=== PATIENT | male | born 1995 | race Caucasian/White ===

== ENCOUNTER 2020-06-27 16:57 | Outpatient (REF) | payer OTHER, SELFPAY | END 2020-06-27 16:58 | disposition home or self-care (01) | LOC: HO.LAB 16:57 | PROVIDERS: Visit Provider Internal Medicine | DX: Z20.828 Contact with and (suspected) exposure to other viral communicable diseases (principal) | CPT/HCPCS: C9803; U0003 ==

== ENCOUNTER 2020-11-06 14:19 | Outpatient (REF) | payer OTHER, SELFPAY ==
[2020-11-06 15:18] LABS: MANUAL DIFF FLAG NO
[2020-11-06 15:21] LABS: Basophils Absolute Auto 0.1 X10*3/uL (0.0-0.2); Basophils Percent Auto 0.9 % (0-2); Eosinophils Absolute Auto 0.5 X10*3/uL (0.0-0.4); Hematocrit 47.4 % (42-52); Hemoglobin 15.7 g/dl (14.0-18.0); Imm Gran Abs Auto 0.06 X10*3/uL (0.00-0.03); Imm Gran Pct Auto 0.6 % (0.0-0.4); Lymphocytes Percent Auto 21.3 % (20-40); Mean Corpuscular HGB Conc 33.1 g/dl (31.0-36.0); Mean Corpuscular Hemoglobin 26.7 pg (27.0-33.0); Mean Corpuscular Volume 80.5 fL (80-98); Mean Platelet Volume 9.9 fL (9.4-12.4); Monocytes Absolute Auto 0.7 X10*3/uL (0.1-1.2); Monocytes Percent Auto 7.1 % (2-11); Neutrophils Absolute Auto 6.2 X10*3/uL (2.0-8.3); Neutrophils Percent Auto 65.1 % (45-73); Platelet Count 388 X10*3/uL (160-400); Red Blood Count 5.89 X10*6/uL (4.60-5.80); Red Cell Distribution Width 13.4 % (11.0-16.0); White Blood Count 9.6 X10*3/uL (4.8-10.8)
[2020-11-06 15:48] LABS: Alanine Aminotransferase 25 U/L (0-40); Albumin Level 5.2 g/dL (3.5-5.0); Alkaline Phosphatase 92 U/L (39-117); Anion Gap 13 (12-20); Aspartate Amino Transferase 23 U/L (5-37); Bilirubin Total 0.7 mg/dL (0.0-1.0); Blood Urea Nitrogen 11 mg/dL (9-16); Calcium 9.9 mg/dL (8.4-10.2); Carbon Dioxide 28 mmol/L (22-29); Chloride 103 mmol/L (96-108); Cholesterol 204 mg/dL; Estimated Glomerular Filt Rate > 60; Glucose Random 92 mg/dL (60-115); HDL Cholesterol 45 mg/dL; LDL Cholesterol Calculated 129 mg/dl; Potassium 4.2 mmol/L (3.3-5.1); Sodium 140 mmol/L (135-145); Triglycerides 152 mg/dL
[2020-11-06 16:09] LABS: Free T4 (Free Thyroxine) 0.91 ng/dL (0.71-1.85); Thyroid Stimulating Hormone 2.02 uIU/mL (0.32-4.0)
[2020-11-06 16:25] LABS: Folate > 20.0 ng/mL (> or = 4.0); Vitamin B12 611 pg/mL (200-900)
[2020-11-07 09:01] LABS: HBsAGNum1 0.14 S/CO (0.00-0.99); HIV AB/AG Nonreactive (Nonreactive); HIV Num 1 0.08 S/CO (0.00-0.99); Hepatitis B Surface Antigen Negative (Negative)
[2020-11-07 09:45] LABS: HBc Num1 0.05 S/CO (0.00-0.79); Hepatitis B Core Antibody Nonreactive (Nonreactive); ~HepC Num1 0.11 S/CO (0.00-0.79); ~Hepatitis B Surface Antibody REACTIVE (Nonreactive); ~Hepatitis C Antibody Nonreactive (Nonreactive)
[2020-11-07 10:12] LABS: CT PCR NOT DETECTED (Not Detect.); NG PCR NOT DETECTED (Not Detect.)
== END 2020-11-06 14:20 | disposition home or self-care (01) ==
LOC: HO.LAB 14:19
PROVIDERS: PCP Internal Medicine; Visit Provider Internal Medicine
DX: E66.3 Overweight (principal); F90.0 Attention-deficit hyperactivity disorder, predominantly inattentive type; R94.8 Abnormal results of function studies of other organs and systems; E78.00 Pure hypercholesterolemia, unspecified
CPT/HCPCS: 80053; 80061; 82607; 82746; 84439; 84443; 85025; 86704; 86706; 86803; 87340; 87389; 87491; 87591

== ENCOUNTER 2020-12-24 11:46 | Outpatient (REF) | payer OTHER, SELFPAY ==
[2020-12-24 12:21] LABS: COVID-19 Test Negative (Negative); IDNOW Serial# 55D5AD1C
== END 2020-12-24 11:47 | disposition home or self-care (01) ==
LOC: HO.EMPCOV 11:46
PROVIDERS: Visit Provider Internal Medicine
DX: Z20.822 Contact with and (suspected) exposure to COVID-19 (principal)
CPT/HCPCS: 36415; 87635; C9803

== ENCOUNTER 2021-09-26 07:36 | Outpatient (REF) | payer OTHER, SELFPAY ==
[2021-09-26 08:12] LABS: Appearance Urine CLEAR; Color Urine YELLOW; Glucose Urine UA NEG (NEG); Leukocyte Esterase Urine NEG (NEG); Nitrite Urine NEG (NEG); PH 6.5 (5.0-8.0); Specific Gravity - Urine 1.025 (1.005-1.025); UACC Culture Trigger NO; Urine Blood TRACE (NEG); Urine Ketones NEG (NEG); Urine Protein NEG (NEG-TRACE)
[2021-09-26 08:22] LABS: Hematocrit 44.7 % (42.0-52.0); Hemoglobin 14.4 g/dl (14.0-18.0); Mean Corpuscular HGB Conc 32.2 g/dl (31.0-36.0); Mean Corpuscular Hemoglobin 26.4 pg (27.0-33.0); Mean Corpuscular Volume 81.9 fL (80.0-98.0); Mean Platelet Volume 9.7 fL (9.4-12.4); Platelet Count 350 X10*3/uL (160-400); Red Blood Count 5.46 X10*6/uL (4.60-5.80); Red Cell Distribution Width 13.4 % (11.0-16.0); White Blood Count 6.7 X10*3/uL (4.8-10.8)
[2021-09-26 08:28] LABS: Mucus Urine TRACE /LPF; WBC Urine 0 /HPF (0-4)
[2021-09-26 08:41] LABS: Alanine Aminotransferase 22 U/L (0-40); Albumin Level 4.8 g/dL (3.5-5.0); Alkaline Phosphatase 78 U/L (39-117); Anion Gap 11 (12-20); Aspartate Amino Transferase 22 U/L (5-37); Bilirubin Total 0.4 mg/dL (0.0-1.0); Blood Urea Nitrogen 13 mg/dL (9-16); Calcium 10.3 mg/dL (8.4-10.2); Carbon Dioxide 30 mmol/L (22-29); Chloride 105 mmol/L (96-108); Estimated Glomerular Filt Rate > 60; Glucose Fasting 107 mg/dL (60-99); Potassium 4.7 mmol/L (3.3-5.1); Sodium 141 mmol/L (135-145); Total Protein 7.8 g/dL (6.5-8.0)
[2021-09-26 09:00] LABS: HBS Num1 11.96 mIU/mL (0-7.99); HBc Num1 0.09 S/CO (0.00-0.79); HIV AB/AG Nonreactive (Nonreactive); HIV Num 1 0.09 S/CO (0.00-0.99); Hepatitis B Core Antibody Nonreactive (Nonreactive)
[2021-09-26 09:04] LABS: TSH reflex Free T4 1.34 uIU/mL (0.32-4.0)
[2021-09-26 09:12] LABS: ~HepC Num1 0.13 S/CO (0.00-0.79); ~Hepatitis C Antibody Nonreactive (Nonreactive)
[2021-09-26 09:26] LABS: HBsAGNum1 0.25 S/CO (0.00-0.99); Hepatitis B Surface Antigen Negative (Negative)
[2021-09-26 09:41] LABS: Syphilis Screen Reactive (Nonreactive)
[2021-09-26 10:29] LABS: HBS Num2 10.75 mIU/mL (0-7.99); HBS Num3 10.49 mIU/mL (0-7.99); ~Hepatitis B Surface Antibody GRAYZONE (Nonreactive)
[2021-09-27 13:20] LABS: Herpes Simplex Type 2 IgG <0.90 index
[2021-10-06 11:17] LABS: T.Pallidum Particle Agg Test Reactive (Nonreactive)
[2021-11-05 10:03] LABS: RPR Quantitative Reactive 1:2 (Nonreactive)
== END 2021-09-26 07:37 | disposition home or self-care (01) ==
LOC: HO.LAB 07:36
PROVIDERS: PCP Internal Medicine; Visit Provider Physician Assistant
DX: N48.1 Balanitis (principal); Z11.3 Encounter for screening for infections with a predominantly sexual mode of transmission; Z13.1 Encounter for screening for diabetes mellitus; Z11.59 Encounter for screening for other viral diseases; Z13.29 Encounter for screening for other suspected endocrine disorder; A53.9 Syphilis, unspecified
CPT/HCPCS: 36415; 80053; 81001; 84443; 85027; 86592; 86695; 86696; 86704; 86706; 86780; 86803; 87340; 87389

== ENCOUNTER 2021-09-27 07:05 | Outpatient (REF) | payer OTHER, SELFPAY ==
[2021-09-27 07:47] LABS: Appearance Urine CLEAR; Color Urine YELLOW; Glucose Urine UA NEG (NEG); Leukocyte Esterase Urine NEG (NEG); Nitrite Urine NEG (NEG); PH 6.5 (5.0-8.0); UACC Culture Trigger NO; Urine Blood TRACE (NEG); Urine Ketones NEG (NEG); Urine Protein TRACE MG/DL (NEG-TRACE)
[2021-09-27 08:02] LABS: Squamous Epithelial Cell Urine TRACE /LPF; WBC Urine 0 /HPF (0-4)
[2021-09-27 08:03] LABS: Mucus Urine TRACE /LPF
[2021-09-29 08:51] LABS: Syphilis Screen Reactive (Nonreactive)
== END 2021-09-27 07:06 | disposition home or self-care (01) ==
LOC: HO.LAB 07:05
PROVIDERS: Physician Assistant; PCP Internal Medicine; Visit Provider Internal Medicine
DX: A53.9 Syphilis, unspecified (principal); R30.0 Dysuria; N48.1 Balanitis
CPT/HCPCS: 36415; 81001; 86780

== ENCOUNTER → 2021-10-07 10:03 | Outpatient (BNVA) | payer OTHER, SELFPAY | PROVIDERS: PCP Internal Medicine; Visit Provider Internal Medicine ==

== ENCOUNTER 2022-02-16 12:16 | Outpatient (REF) | payer OTHER, SELFPAY ==
--- NOTE | ~2022-02-16 | XR_ITS ---
EXAMINATION: XR ABDOMEN KUB CLINICAL INDICATION: Hematuria COMPARISON: None TECHNIQUE: AP view of the abdomen. FINDINGS: The bowel gas pattern is normal with no evidence of ileus or obstruction. No unusual soft tissue calcifications are noted. The bones are unremarkable. XR/XR KUB IMPRESSION: Unremarkable examination.
== END 2022-02-16 12:17 | disposition home or self-care (01) ==
LOC: HO.XRAY 12:16
PROVIDERS: Visit Provider Internal Medicine
DX: R31.9 Hematuria, unspecified (principal)
CPT/HCPCS: 74018

== ENCOUNTER 2022-02-17 07:10 | Outpatient (REF) | payer OTHER, SELFPAY ==
[2022-02-17 07:57] LABS: Urine Cytology See Pathology rpt
[2022-02-17 08:03] LABS: Appearance Urine CLEAR; Color Urine YELLOW; Glucose Urine UA NEG (NEG); Leukocyte Esterase Urine NEG (NEG); Nitrite Urine NEG (NEG); PH 6.5 (5.0-8.0); Specific Gravity - Urine 1.015 (1.005-1.025); UACC Culture Trigger NO; Urine Blood TRACE (NEG); Urine Ketones NEG (NEG); Urine Protein NEG (NEG-TRACE)
[2022-02-17 08:29] LABS: WBC Urine 0-2 /HPF (0-4)
[2022-02-17 08:37] LABS: Alanine Aminotransferase 22 U/L (0-40); Albumin Level 4.6 g/dL (3.5-5.0); Alkaline Phosphatase 80 U/L (39-117); Anion Gap 14 (12-20); Aspartate Amino Transferase 23 U/L (5-37); Bilirubin Total 0.6 mg/dL (0.0-1.0); Blood Urea Nitrogen 12 mg/dL (9-16); Calcium 9.6 mg/dL (8.4-10.2); Carbon Dioxide 26 mmol/L (22-29); Chloride 104 mmol/L (96-108); Estimated Average Glucose 100 mg/dL; Estimated Glomerular Filt Rate > 60; Glucose Random 100 mg/dL (60-115); Hemoglobin A1c % 5.1 %; Potassium 4.6 mmol/L (3.3-5.1); Sodium 139 mmol/L (135-145); Total Protein 7.2 g/dL (6.5-8.0)
== END 2022-02-17 07:11 | disposition home or self-care (01) ==
LOC: HO.LAB 07:10
PROVIDERS: Physician Assistant; PCP Internal Medicine; Visit Provider Internal Medicine
DX: R73.09 Other abnormal glucose (principal); R30.0 Dysuria; N48.1 Balanitis; R31.9 Hematuria, unspecified
CPT/HCPCS: 36415; 80053; 81001; 81003; 83036; 88112

== ENCOUNTER 2022-09-08 07:06 | Outpatient (REF) | payer OTHER, SELFPAY ==
[2022-09-08 07:16] LABS: MANUAL DIFF FLAG NO
[2022-09-08 07:40] LABS: Basophils Absolute Auto 0.1 X10*3/uL (0.0-0.2); Basophils Percent Auto 1.4 % (0-2); Eosinophils Absolute Auto 0.7 X10*3/uL (0.0-0.4); Eosinophils Percent Auto 9.8 % (0-4); Hematocrit 44.2 % (42.0-52.0); Hemoglobin 14.4 g/dl (14.0-18.0); Imm Gran Abs Auto 0.03 X10*3/uL (0.00-0.03); Imm Gran Pct Auto 0.4 % (0.0-0.4); Lymphocytes Percent Auto 27.3 % (20-40); Mean Corpuscular HGB Conc 32.6 g/dl (31.0-36.0); Mean Corpuscular Hemoglobin 26.1 pg (27.0-33.0); Mean Corpuscular Volume 80.2 fL (80.0-98.0); Mean Platelet Volume 9.3 fL (9.4-12.4); Monocytes Absolute Auto 0.6 X10*3/uL (0.1-1.2); Neutrophils Absolute Auto 3.9 x10*3/uL (2.0-8.3); Neutrophils Percent Auto 53.1 % (45-73); Platelet Count 306 X10*3/uL (160-400); Red Blood Count 5.51 X10*6/uL (4.60-5.80); Red Cell Distribution Width 13.6 % (11.0-16.0); White Blood Count 7.4 X10*3/uL (4.8-10.8)
[2022-09-08 08:29] LABS: Appearance Urine Clear; Color Urine Yellow; Glucose Urine UA Negative (Negative); Leukocyte Esterase Urine Negative (Negative); Nitrite Urine Negative (Negative); PH 5.5 (5.0-9.0); Specific Gravity - Urine >= 1.030 (1.005-1.025); UMIC TRIGGER UA YES; Urine Blood Trace (Negative); Urine Ketones Negative (Negative); Urine Protein Trace mg/dL (Neg-Trace)
[2022-09-08 08:34] LABS: Bacteria Urine None Seen (None Seen); Hyaline Casts Urine 0-2 /LPF (0-2); RBC Urine 0-2 /HPF (0-2); Squamous Epithelial Cell Urine 0-2 /HPF (0-2); WBC Urine 0-5 /HPF (0-5)
[2022-09-08 08:51] LABS: Alanine Aminotransferase 31 U/L (0-40); Albumin Level 4.6 g/dL (3.5-5.0); Alkaline Phosphatase 84 U/L (39-117); Anion Gap 15 (12-20); Aspartate Amino Transferase 22 U/L (5-37); Bilirubin Total 0.6 mg/dL (0.0-1.0); Blood Urea Nitrogen 16 mg/dL (9-16); Calcium 10.2 mg/dL (8.4-10.2); Carbon Dioxide 25 mmol/L (22-29); Chloride 105 mmol/L (96-108); Cholesterol 193 mg/dL; Estimated Glomerular Filt Rate > 60; Glucose Random 89 mg/dL (60-115); HDL Cholesterol 48 mg/dL; LDL Cholesterol Calculated 108 mg/dl; Potassium 4.1 mmol/L (3.3-5.1); Sodium 141 mmol/L (135-145); Total Protein 7.4 g/dL (6.5-8.0); Triglycerides 186 mg/dL
[2022-09-08 09:09] LABS: Free T4 (Free Thyroxine) 0.96 ng/dL (0.71-1.85); Thyroid Stimulating Hormone 1.13 uIU/mL (0.32-4.0)
[2022-09-08 09:23] LABS: Folate > 20.0 ng/mL (> or = 4.0); Vitamin B12 702 pg/mL (200-900)
== END 2022-09-08 07:07 | disposition home or self-care (01) ==
LOC: HO.LAB 07:06
PROVIDERS: PCP Internal Medicine; Visit Provider Internal Medicine
DX: F90.9 Attention-deficit hyperactivity disorder, unspecified type (principal); E66.3 Overweight; E78.00 Pure hypercholesterolemia, unspecified
CPT/HCPCS: 36415; 80053; 80061; 81001; 82607; 82746; 84439; 84443; 85025

== ENCOUNTER 2022-11-18 14:00 | Outpatient (REF) | payer OTHER, SELFPAY ==
--- NOTE | ~2022-11-18 | US_ITS ---
EXAMINATION: US RETROPERITONEAL LIMITED (RENAL ONLY) CLINICAL INFORMATION: Hematuria, unspecified. COMPARISON: X-ray abdomen KUB 02/16/2022. TECHNIQUE: Real-time imaging of the kidneys. FINDINGS: RIGHT KIDNEY: 9.9 x 7.2 x 6.7 cm (SAG x AP x TRV). The kidney is normal in size, contour, and echogenicity. Renal cortical thickness is normal. No renal calculi or hydronephrosis. A benign-appearing exophytic 1.8 cm cyst is present which needs no additional imaging or followup. No solid renal masses. LEFT KIDNEY: 9.8 x 6.5 x 5.3 cm (SAG x AP x TRV). The kidney is normal in size, contour, and echogenicity. Renal cortical thickness is normal. No renal calculi or hydronephrosis. A benign-appearing 1.9 cm parapelvic cyst is present which needs no additional imaging or followup. No solid renal masses. US/US renal BI IMPRESSION: Negative exam. A cause for the patient's hematuria has not been found.
== END 2022-11-18 14:01 | disposition home or self-care (01) ==
LOC: HO.US 14:00
PROVIDERS: PCP Internal Medicine; Visit Provider Internal Medicine
DX: R31.9 Hematuria, unspecified (principal)
CPT/HCPCS: 76775

== ENCOUNTER 2023-06-30 13:55 | Outpatient (AMB) | payer OTHER, SELFPAY ==
--- NOTE | 2023-06-30 13:58 | A.OFFPC_ITS ---
Vital Signs 06/30/23 14:00 Height 5 ft 4 in Weight 174 lb 8 oz BMI 29.9 BP 120/72 Blood Pressure Location Lt brachial Position Sitting Pulse 66 Pulse Source Pulse Oximeter Pulse Oximetry (%) 96 Oxygen Delivery Method Room Air Intake Visit Reasons: Follow up Intake Note: Patient is here to follow up on medication review. Clothes Marker Required: No Medical Surgical Tech: Not Required per policy Accompanied by: Self / Same As Patient Allergies No Known Allergies Allergy (Verified 06/30/23 13:59) Tobacco use date assessed: 06/30/23 Dental Screening Dental Screen Date: 06/30/23 Did you have a dental visit in the last 12 months?: Yes Did you have a dental problem in the last 6 months where you did not have access to dental care?: No Was dental information given to patient?: Patient has dentist HPI Follow up HPI Details [id number] overweight male with a history of ADHD hypercholesterolemia coming in for follow-up. Last seen in January 2023. Patient comes in for med check last blood work was August 2022 [facility] Medical History (Updated 11/13/22 @ 16:35 by Emiliano Berger MD) Syphilis Balanitis Exposure to COVID-19 virus COVID-19 virus infection Overweight (BMI 25.0-29.9) GERD (gastroesophageal reflux disease) Allergic rhinitis ADHD Surgical History H/O adenoidectomy Social History Housing: Apartment Alcohol intake: current Alcohol intake frequency: 3 or more drinks per day Patient Tobacco Use Status: Former Tobacco user Tobacco use type: Cigarette Years Smoked: quit 2019 e-Cigarette/Vaping Use: Never Used Second Hand Smoke Exposure: No service: No Current occupational status: employed Cognitive needs: No Hearing needs: No Vision needs: No Questionnaire Thrive Questionnaire Date Thrive assessed: 11/13/22 FAHAD-7 AMB Questionnaire FAHAD-7 Date FAHAD - 7 assessed: 11/13/22 Source: Developed by Drs. Shimon Shaw, Brynn Cerrato, Arsh Lemus and colleagues, with an educational alfred from [employer]. Physical exam (Primary Care) Vital Signs: Last Vital Signs Pulse 66 06/30/23 14:00 BP 120/72 06/30/23 14:00 Pulse Ox 96 06/30/23 14:00 Oxygen Delivery Method Room Air 06/30/23 14:00 BMI result Body Mass Index 29.9 Tobacco/Smoking Status: Tobacco use Status Tobacco use date assessed 06/30/23 06/30/23 14:04 Patient Tobacco Use Status Former Tobacco user 06/30/23 14:04 Tobacco use type Cigarette 06/30/23 14:04 e-Cigarette/Vaping Use Never Used 06/30/23 14:04 Thrive Assessment: Date of Thrive Assessment Date Thrive assessed 11/13/22 06/30/23 14:04 Const General: alert; No acute distress Eyes Conjunctivae: conjunctivae normal Resp Auscultation: clear to auscultation bilaterally Cardio Rate: regular rate Rhythm: regular rhythm GI Inspection: Yes normal to inspection Extrem General: Yes normal to inspection and No edema Assessment and Plan Assessment & Plan (1) Hypertriglyceridemia: Code(s): E78.1 - Pure hyperglyceridemia Plan: Avoid fried foods, chicken skin, eggs, butter margarine, pastries and meat. Be it pork or beef they have a lot of cholesterol LDL goal of less than 130 and triglyceride of less than 150. August 2022 last blood work (2) Overweight (BMI 25.0-29.9): Code(s): E66.3 - Overweight Plan: Diet and exercise (3) ADHD: Comment: Date of exam July 2008 Meek Spangler Neuropsychology axis 1 degrees ADHD motor output disorder visual-spatial constructional, memory and processing speed weakness rule out thought disorder PDD spectrum features axis Code(s): F90.9 - Attention-deficit hyperactivity disorder, unspecified type Qualifiers: Attention deficit-hyperactivity disorder type: unspecified Qualified Code(s): F90.9 - Attention-deficit hyperactivity disorder, unspecified type Plan: Continue with present medication Orders: Orders Thyroid Stimulating Hormone 3 Months E66.3 - Overweight Lipid Panel 3 Months E78.00 - Pure hypercholesterolemia, unspecified, E78.1 - Pure hyperglyceridemia Complete Blood Count Auto Diff 3 Months E66.3 - Overweight Comprehensive Met. Panel 3 Months E66.3 - Overweight Free T4 (Free Thyroxine) 3 Months E66.3 - Overweight Vitamin B12 and Folate 3 Months E78.1 - Pure hyperglyceridemia Medications: Refilled methylphenidate HCl ER 18 mg PO DAILY 30 tabs 0RF 30 days E66.3 - Overweight Coding Level of Care Code Est Pt Level 4 (39772) Diagnoses Hypertriglyceridemia E78.1 Overweight (BMI 25.0-29.9) E66.3 Attention deficit hyperactivity disorder (ADHD), unspecified ADHD type F90.9 Attention deficit-hyperactivity disorder type: unspecified
[2023-06-30 14:00] VITALS: BP 120/72; PULSE 66; O2SAT 96; BMI 29.9
== END 2023-06-30 14:33 | disposition home or self-care (01) ==
PROVIDERS: PCP Internal Medicine; Visit Provider Internal Medicine
DX: E78.1 Pure hyperglyceridemia (principal); E66.3 Overweight; F90.9 Attention-deficit hyperactivity disorder, unspecified type
CPT/HCPCS: 99214

== ENCOUNTER 2023-06-30 14:45 | Outpatient (REF) | payer OTHER, SELFPAY ==
[2023-06-30 15:05] LABS: MANUAL DIFF FLAG NO
[2023-06-30 15:21] LABS: Basophils Absolute Auto 0.1 X10*3/uL (0.0-0.2); Basophils Percent Auto 1.1 % (0-2); Eosinophils Absolute Auto 0.6 X10*3/uL (0.0-0.4); Eosinophils Percent Auto 7.3 % (0-4); Hematocrit 44.3 % (42.0-52.0); Hemoglobin 14.9 g/dl (14.0-18.0); Imm Gran Abs Auto 0.02 X10*3/uL (0.00-0.03); Imm Gran Pct Auto 0.2 % (0.0-0.4); Lymphocytes Absolute Auto 2.7 X10*3/uL (1.2-4.9); Lymphocytes Percent Auto 30.5 % (20-40); Mean Corpuscular HGB Conc 33.6 g/dl (31.0-36.0); Mean Corpuscular Volume 80.3 fL (80.0-98.0); Mean Platelet Volume 9.2 fL (9.4-12.4); Monocytes Absolute Auto 0.8 X10*3/uL (0.1-1.2); Monocytes Percent Auto 9.3 % (2-11); Neutrophils Absolute Auto 4.5 x10*3/uL (2.0-8.3); Neutrophils Percent Auto 51.6 % (45-73); Platelet Count 370 X10*3/uL (160-400); Red Blood Count 5.52 X10*6/uL (4.60-5.80); Red Cell Distribution Width 13.4 % (11.0-16.0); White Blood Count 8.8 X10*3/uL (4.8-10.8)
[2023-06-30 16:09] LABS: Alanine Aminotransferase 30 U/L (0-40); Albumin Level 4.9 g/dL (3.5-5.0); Alkaline Phosphatase 91 U/L (39-117); Anion Gap 12 (12-20); Aspartate Amino Transferase 25 U/L (5-37); Bilirubin Total 0.4 mg/dL (0.0-1.0); Blood Urea Nitrogen 13 mg/dL (9-16); Calcium 9.9 mg/dL (8.4-10.2); Carbon Dioxide 29 mmol/L (22-29); Chloride 102 mmol/L (96-108); Cholesterol 224 mg/dL (<200); Estimated Glomerular Filt Rate > 60; Glucose Random 89 mg/dL (60-115); HDL Cholesterol 42 mg/dL (>40); LDL Cholesterol Calculated 126 mg/dL (<100); Potassium 4.1 mmol/L (3.3-5.1); Sodium 139 mmol/L (135-145); Total Protein 8.1 g/dL (6.5-8.0); Triglycerides 283 mg/dL (<150)
[2023-06-30 16:26] LABS: Free T4 (Free Thyroxine) 0.92 ng/dL (0.71-1.85); Thyroid Stimulating Hormone 0.87 uIU/mL (0.32-4.0)
[2023-06-30 16:38] LABS: Folate 12.7 ng/mL (> or = 4.0); Vitamin B12 640 pg/mL (200-900)
== END 2023-06-30 14:46 | disposition home or self-care (01) ==
LOC: HO.LAB 14:45
PROVIDERS: PCP Internal Medicine; Visit Provider Internal Medicine
DX: E66.3 Overweight (principal); E78.00 Pure hypercholesterolemia, unspecified; E78.1 Pure hyperglyceridemia
CPT/HCPCS: 36415; 80053; 80061; 82607; 82746; 84439; 84443; 85025

== ENCOUNTER 2023-09-06 16:37 | Outpatient (AMB) | payer OTHER, SELFPAY ==
[2023-09-06 16:40] VITALS: BP 104/68; BMI 30.2
--- NOTE | 2023-09-06 16:40 | MHC.PC.OV ---
Vital Signs 09/06/23 16:40 Height 5 ft 4 in Weight 176 lb BMI 30.2 BP 104/68 Blood Pressure Location Lt brachial Position Sitting Pulse Source Pulse Oximeter Oxygen Delivery Method Room Air Intake Visit Reasons: F/U Coiled Coil Inspector Required: No Allergies No Known Allergies Allergy (Verified 09/06/23 16:41) Tobacco use date assessed: 09/06/23 Dental Screening Dental Screen Date: 09/06/23 HPI F/U HPI Details 28-year-old obese male with ADHD hypertriglyceridemia coming in for follow-up last seen in June 2023. [facility] Medical History (Updated 09/06/23 @ 16:52 by Emiliano Berger MD) Syphilis Balanitis Exposure to COVID-19 virus COVID-19 virus infection Overweight (BMI 25.0-29.9) GERD (gastroesophageal reflux disease) Allergic rhinitis ADHD Surgical History H/O adenoidectomy Social History Housing: Apartment Alcohol intake: current Alcohol intake frequency: 3 or more drinks per day Patient Tobacco Use Status: Former Tobacco user Tobacco use type: Cigarette Years Smoked: quit 2019 e-Cigarette/Vaping Use: Never Used Second Hand Smoke Exposure: No service: No Current occupational status: employed Cognitive needs: No Hearing needs: No Vision needs: No Questionnaire Thrive Questionnaire Date Thrive assessed: 11/13/22 AUDIT C Alcohol Use Questionnaire (AUDIT-C) 1. How often do you have a drink containing alcohol?: Monthly or less 2. How many drinks containing alcohol do you have on a typical day when you are drinking?: 1 or 2 3. How often do you have six or more drinks on one occasion?: Never Total Score: 1 FAHAD-7 AMB Questionnaire FAHAD-7 Date FAHAD - 7 assessed: 11/13/22 Source: Developed by Drs. Shimon Shaw, Brynn Cerrato, Arsh Lemus and colleagues, with an educational alfrde from [employer]. Physical exam (Primary Care) Vital Signs: Last Vital Signs BP 104/68 09/06/23 16:40 Oxygen Delivery Method Room Air 09/06/23 16:40 BMI result Body Mass Index 30.2 Tobacco/Smoking Status: Tobacco use Status Tobacco use date assessed 09/06/23 09/06/23 16:45 Patient Tobacco Use Status Former Tobacco user 09/06/23 16:45 Tobacco use type Cigarette 09/06/23 16:45 e-Cigarette/Vaping Use Never Used 09/06/23 16:45 Thrive Assessment: Date of Thrive Assessment Date Thrive assessed 11/13/22 09/06/23 16:45 Const General: alert; No acute distress Eyes Conjunctivae: conjunctivae normal Resp Auscultation: clear to auscultation bilaterally Cardio Rate: regular rate Rhythm: regular rhythm GI Inspection: Yes normal to inspection Extrem General: Yes normal to inspection and No edema Assessment and Plan Assessment & Plan (1) Obesity (BMI 30.0-34.9): Code(s): E66.9 - Obesity, unspecified Plan: Diet and exercise (2) Hypertriglyceridemia: Code(s): E78.1 - Pure hyperglyceridemia Plan: Avoid fried foods, chicken skin, eggs, butter margarine, pastries and meat. Be it pork or beef they have a lot of cholesterol LDL goal of less than 130 and triglyceride of less than 150. plan on eating better and exercising. (3) ADHD: Comment: Date of exam July 2008 Meek Spangler Neuropsychology axis 1 degrees ADHD motor output disorder visual-spatial constructional, memory and processing speed weakness rule out thought disorder PDD spectrum features axis Code(s): F90.9 - Attention-deficit hyperactivity disorder, unspecified type Qualifiers: Attention deficit-hyperactivity disorder type: unspecified Qualified Code(s): F90.9 - Attention-deficit hyperactivity disorder, unspecified type Plan: Continue with present medication (4) Generalized anxiety disorder: Code(s): F41.1 - Generalized anxiety disorder Plan: Continue with therapy. Coding Level of Care Code Est Pt Level 4 (30337) Diagnoses Obesity (BMI 30.0-34.9) E66.9 Hypertriglyceridemia E78.1 Attention deficit hyperactivity disorder (ADHD), unspecified ADHD type F90.9 Attention deficit-hyperactivity disorder type: unspecified Generalized anxiety disorder F41.1
== END 2023-09-06 17:01 | disposition home or self-care (01) ==
PROVIDERS: PCP Internal Medicine; Visit Provider Internal Medicine
DX: E78.1 Pure hyperglyceridemia (principal); F90.9 Attention-deficit hyperactivity disorder, unspecified type; E66.9 Obesity, unspecified; Z68.30 Body mass index [BMI] 30.0-30.9, adult; F41.1 Generalized anxiety disorder
CPT/HCPCS: 99214

== ENCOUNTER 2023-11-16 13:17 | Outpatient (AMB) | payer OTHER, SELFPAY ==
[2023-11-16 13:18] VITALS: BP 120/82; PULSE 74; O2SAT 98; BMI 29.9
--- NOTE | 2023-11-16 13:18 | MHC.PC.OV ---
Vital Signs 11/16/23 13:18 Height 5 ft 4 in Weight 174 lb 0.6 oz BMI 29.9 BP 120/82 Blood Pressure Location Lt brachial Position Sitting Pulse 74 Pulse Source Pulse Oximeter Pulse Oximetry (%) 98 Oxygen Delivery Method Room Air Intake Visit Reasons: med follow up Intake Note: Patient is here to follow up on [symptoms]. Cardiology Teacher Required: No Allergies No Known Allergies Allergy (Verified 11/16/23 13:18) Tobacco use date assessed: 11/16/23 HPI med follow up HPI Details 28-year-old overweight male with hypertriglyceridemia generalized anxiety disorder and ADHD coming in for follow-up. Last seen in August 2023. June 2023 last blood work [facility] Medical History (Updated 09/06/23 @ 16:52 by Emiliano Berger MD) Syphilis Balanitis Exposure to COVID-19 virus COVID-19 virus infection Overweight (BMI 25.0-29.9) GERD (gastroesophageal reflux disease) Allergic rhinitis ADHD Surgical History H/O adenoidectomy Social History Housing: Apartment Alcohol intake: current Alcohol intake frequency: 3 or more drinks per day Patient Tobacco Use Status: Former Tobacco user Tobacco use type: Cigarette Years Smoked: quit 2019 e-Cigarette/Vaping Use: Never Used Second Hand Smoke Exposure: No service: No Current occupational status: employed Cognitive needs: No Hearing needs: No Vision needs: No Questionnaire Thrive Questionnaire Date Thrive assessed: 11/16/23 AUDIT C Alcohol Use Questionnaire (AUDIT-C) 1. How often do you have a drink containing alcohol?: Monthly or less 2. How many drinks containing alcohol do you have on a typical day when you are drinking?: 1 or 2 3. How often do you have six or more drinks on one occasion?: Never Total Score: 1 FAHAD-7 AMB Questionnaire FAHAD-7 Date FAHAD - 7 assessed: 11/16/23 Source: Developed by Drs. Shimon Shaw, Brynn Cerrato, Arsh Lemus and colleagues, with an educational alfred from [employer] Physical exam (Primary Care) Vital Signs: Last Vital Signs Pulse 74 11/16/23 13:18 BP 120/82 11/16/23 13:18 Pulse Ox 98 11/16/23 13:18 Oxygen Delivery Method Room Air 11/16/23 13:18 BMI result Body Mass Index 29.9 Tobacco/Smoking Status: Tobacco use Status Tobacco use date assessed 11/16/23 11/16/23 13:19 Patient Tobacco Use Status Former Tobacco user 11/16/23 13:19 Tobacco use type Cigarette 11/16/23 13:19 e-Cigarette/Vaping Use Never Used 11/16/23 13:19 Thrive Assessment: Date of Thrive Assessment Date Thrive assessed 11/16/23 11/16/23 13:19 Const General: alert; No acute distress Eyes Conjunctivae: conjunctivae normal Resp Auscultation: clear to auscultation bilaterally Cardio Rate: regular rate Rhythm: regular rhythm GI Inspection: Yes normal to inspection Extrem General: Yes normal to inspection and No edema Assessment and Plan Assessment & Plan (1) Overweight (BMI 25.0-29.9): Code(s): E66.3 - Overweight Plan: Diet and exercise (2) Hypertriglyceridemia: Code(s): E78.1 - Pure hyperglyceridemia Plan: Avoid fried foods, chicken skin, eggs, butter margarine, pastries and meat. Be it pork or beef they have a lot of cholesterol LDL goal of less than 130 and triglyceride of less than 150. June 2023 last blood work (3) ADHD: Comment: Date of exam July 2008 Meek Spangler Neuropsychology axis 1 degrees ADHD motor output disorder visual-spatial constructional, memory and processing speed weakness rule out thought disorder PDD spectrum features axis Code(s): F90.9 - Attention-deficit hyperactivity disorder, unspecified type Qualifiers: Attention deficit-hyperactivity disorder type: unspecified Qualified Code(s): F90.9 - Attention-deficit hyperactivity disorder, unspecified type Plan: Continue with present medication Coding Level of Care Code Est Pt Level 4 (04891) Diagnoses Overweight (BMI 25.0-29.9) E66.3 Hypertriglyceridemia E78.1 Attention deficit hyperactivity disorder (ADHD), unspecified ADHD type F90.9 Attention deficit-hyperactivity disorder type: unspecified
== END 2023-11-16 14:46 | disposition home or self-care (01) ==
LOC: HO.HMGH 13:17
PROVIDERS: PCP Internal Medicine; Visit Provider Internal Medicine
DX: E66.3 Overweight (principal); E78.1 Pure hyperglyceridemia; F90.9 Attention-deficit hyperactivity disorder, unspecified type
CPT/HCPCS: 99214

== ENCOUNTER 2024-05-09 15:10 | Outpatient (AMB) | payer OTHER, SELFPAY ==
--- NOTE | 2024-05-09 15:17 | A.OFFPC_ITS ---
Vital Signs 05/09/24 15:18 Height 5 ft 4 in Weight 181 lb 6 oz BMI 31.1 BP 130/68 Blood Pressure Location Lt brachial Position Sitting Pulse 71 Pulse Source Pulse Oximeter Pulse Oximetry (%) 98 Oxygen Delivery Method Room Air Intake Visit Reasons: annual exam Intake Note: Patient is here today for a physical. 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 patient has no concerns today. COUNT INCLUDES [facility] Medical History Syphilis Balanitis Exposure to COVID-19 virus COVID-19 virus infection Overweight (BMI 25.0-29.9) GERD (gastroesophageal reflux disease) Allergic rhinitis ADHD Surgical History H/O adenoidectomy Social History Housing: Apartment Alcohol intake: current Alcohol intake frequency: 3 or more drinks per day Patient Tobacco Use Status: Former Tobacco user Tobacco use type: Cigarette Years Smoked: quit 2019 e-Cigarette/Vaping Use: Never Used Second Hand Smoke Exposure: No service: No Current occupational status: employed Cognitive needs: No Hearing needs: No Vision needs: No Questionnaire PHQ-9 Over the last 2 weeks, how often have you been bothered by any of the following problems? 1. Little interest or pleasure in doing things: not at all 2. Feeling down, depressed, or hopeless: not at all 3. Trouble falling or staying asleep, or sleeping too much: not at all 4. Feeling tired or having little energy: not at all 5. Poor appetite or overeating: not at all 6. Feeling bad about yourself - or that you are a failure or have let yourself or your family down: not at all 7. Trouble concentrating on things, such as reading the newspaper or watching television: not at all 8. Moving or speaking so slowly that other people could have noticed. Or the opposite - being so fidgety or restless that you have been moving around a lot more than usual: not at all 9. Thoughts that you would be better off or of hurting yourself in some way: not at all Total score: 0 Depression Screening Interpretation: Negative Depression Screening Done: Yes Source: Developed by Drs. Shimon Shaw, Brynn Cerrato, Arsh Lemus and colleagues, with an educational alfred from [employer]. Thrive Questionnaire Date Thrive assessed: 11/16/23 I am a: Patient What is your living situation today?: I have a steady place to live Within the past 12 months, did the food you bought not last and you didn't have the money to get more?: Never true Within the past 12 months, did you worry whether your food would run out before you got money to buy more?: Never true Do you have trouble paying for medicines?: No Do you have trouble getting transportation to medical appointments?: No Do you have trouble paying your heating and electricity bill?: No Do you have trouble taking care of your child, family member or friend?: No Do you have trouble with day-to-day activities such as bathing, preparing meals, shopping, managing finances, etc.?: No Are you currently unemployed and looking for a job?: No Are you interested in more education?: No Please select the resources that you would like help with: None Currently or been in a relationship where the following occur: No concerns reported THRIVE Score: 0 AUDIT C Alcohol Use Questionnaire (AUDIT-C) 1. How often do you have a drink containing alcohol?: 2-4 times a month 2. How many drinks containing alcohol do you have on a typical day when you are drinking?: 1 or 2 3. How often do you have six or more drinks on one occasion?: Never Total Score: 2 FAHAD-7 AMB Questionnaire FAHAD-7 Date FAHAD - 7 assessed: 05/09/24 Feeling nervous, anxious, or on edge: 0 = Not at all Not being able to stop or control worryin = Not at all Worrying too much about different things: 0 = Not at all Trouble relaxin = Not at all Being so restless that it is hard to sit still: 0 = Not at all Becoming easily annoyed or irritable: 0 = Not at all Feeling afraid as if something awful might happen: 0 = Not at all Total FAHAD-7 score (0-4 normal; 5-9 mild; 10-14 moderate; 15-21 severe): 0 Source: Developed by Drs. Shimon Shaw, Brynn Cerrato, Arsh Lemus and colleagues, with an educational alfred from [employer]. Review of Systems Const Denies body aches, Denies fatigue, Denies fever(s), Denies frequent falls, Denies headache(s) and Denies weakness Eyes Reports no additional complaints and Denies change in vision ENT Denies dysphagia, Denies dizziness, Denies facial pain, Denies headache(s), Denies nasal congestion and Denies odynophagia Card Denies chest pain, Denies syncope, Denies irregular heart rhythm, Denies leg edema, Denies lightheadedness and Denies dyspnea Resp Denies cough and Denies dyspnea GI Denies constipation, Denies dysphagia, Denies dyspepsia, Denies diarrhea, Denies nausea, Denies odynophagia and Denies vomiting Denies dysuria, Denies urinary frequency, Denies urinary hesitancy and Denies urinary urgency Musc Denies back pain and Denies myalgias Skin/Breast Reports system reviewed and no additional complaints, except as documented Neuro Denies dizziness, Denies syncope, Denies frequent falls, Denies headache(s) and Denies weakness Psych Reports no additional complaints Endo Denies fatigue Physical exam (Primary Care) Vital Signs: Last Vital Signs Pulse 71 05/09/24 15:18 BP 130/68 05/09/24 15:18 Pulse Ox 98 05/09/24 15:18 Oxygen Delivery Method Room Air 05/09/24 15:18 BMI result Body Mass Index 31.1 Tobacco/Smoking Status: Tobacco use Status Tobacco use date assessed 05/09/24 05/09/24 15:29 Patient Tobacco Use Status Former Tobacco user 05/09/24 15:29 Tobacco use type Cigarette 05/09/24 15:29 e-Cigarette/Vaping Use Never Used 05/09/24 15:29 PHQ-9: PHQ-9 Score PHQ-9: Total score 0 05/09/24 15:29 Depression Screening Interpretation: Negative Thrive Assessment: Date of Thrive Assessment Date Thrive assessed 11/16/23 05/09/24 15:29 Currently or been in a relationship where the following occur: No concerns reported Const General: cooperative, healthy appearing, comfortable and no acute distress Orientation/consciousness: patient oriented x3 HENMT Head: Yes normocephalic Ears: hearing grossly normal bilaterally, external ears normal, TM's normal bilaterally and EAC's normal General nose exam: Normal external nose present Face and sinus: Yes normal facial exam and Yes sinuses nontender Mouth: Normal oral and palatal mucosa present and tongue normal Throat: Yes posterior oropharynx normal Eyes General: appearance normal, both eyes and all related structures Conjunctivae: conjunctivae normal Pupils: Equal, round and reactive pupils present EOM: EOMs intact bilaterally and No Nystagmus present Neck Neck: Yes normal visual inspection, Yes full ROM and Yes no lymphadenopathy Chest Chest palpation & inspection: normal inspection of the chest Resp Effort & Inspection: normal respiratory effort Auscultation: clear to auscultation bilaterally, no crackles, no rales, no rhonchi, no wheezes and breath sounds present Cardio Rate: regular rate Rhythm: regular rhythm Peripheral pulses: radial pulses present and dorsalis pedis present GI Inspection: Yes normal to inspection and No Abdominal wall edema Palpation (GI): Soft to palpation, not firm and nontender Auscultation: normal bowel sounds Rectal Exam - Male: Yes deferred General: Yes no CVA tenderness Back/Spine/Pelvis Back: no CVA tenderness Skin General skin exam: no rashes or lesions noted Neuro General: patient oriented x3 Cranial nerves: Yes Equal, round and reactive pupils present, Yes Midline tongue present, Yes Ability to bilaterally elevate shoulders present and No Nystagmus present Gait exam (Neuro): Normal gait present Extrem General: Yes normal to inspection, Yes full ROM, No no pedal edema and No edema Psych Speech and movement: Normal speech and movement present Affect: normal affect Insight: Good insight present (Psych) Judgement: Good judgement present (Psych) Assessment and Plan Assessment & Plan (1) Obesity (BMI 30.0-34.9): Code(s): E66.9 - Obesity, unspecified Plan: Encouraged healthy diet and regular exercise. (2) Hypertriglyceridemia: Code(s): E78.1 - Pure hyperglyceridemia Plan: Last labs showed elevated triglycerides and LDL. Ordered for updated blood work . Avoid foods that are high in cholesterol such as red meat, fried foods, eggs and baked goods. Triglyceride goal of less than 150 and LDL goal of less than 130. Not currently on medical management (3) Generalized anxiety disorder: Code(s): F41.1 - Generalized anxiety disorder Plan: Not currently on medical management and declines counselor at this time. (4) Annual physical exam: Code(s): Z00.00 - Encounter for general adult medical examination without abnormal findings Plan: Up to date on all recommended vaccinations and screenings for his age. Ordered for updated blood work at this time. Will follow up in 3 months for cholesterol labs. (5) ADHD: Comment: Date of exam July 2008 Meek Spangler Neuropsychology axis 1 degrees ADHD motor output disorder visual-spatial constructional, memory and processing speed weakness rule out thought disorder PDD spectrum features axis Code(s): F90.9 - Attention-deficit hyperactivity disorder, unspecified type Qualifiers: Attention deficit-hyperactivity disorder type: unspecified Qualified Code(s): F90.9 - Attention-deficit hyperactivity disorder, unspecified type Plan: Continue on current medication. Plan This note was constructed using voice recognition software. While every effort has been made to ensure accuracy and rn allergy, still areas may have been included sometimes these areas may affect the content or meeting of the given symptoms. Total time spent caring for the patient today was 30 minutes. This includes time spent before the visit reviewing the chart, time spent during the visit, and time spent after the visit and documentation. Orders: Orders Vitamin B12 and Folate Today Z00.00 - Encounter for general adult medical examination without abnormal findings TSH reflex Free T4 Today Z00.00 - Encounter for general adult medical examination without abnormal findings Complete Blood Count Auto Diff Today Z00.00 - Encounter for general adult medical examination without abnormal findings Comprehensive Met. Panel Today Z00.00 - Encounter for general adult medical examination without abnormal findings Vitamin D 25-OH (D2 and D3) Today Z00.00 - Encounter for general adult medical examination without abnormal findings Free T4 (Free Thyroxine) Today Z00.00 - Encounter for general adult medical examination without abnormal findings Lipid Panel Today Z00.00 - Encounter for general adult medical examination without abnormal findings Hepatitis B Surface Antigen Today Z00.00 - Encounter for general adult medical examination without abnormal findings CT NG by PCR Today Z00.00 - Encounter for general adult medical examination without abnormal findings Hepatitis C Antibody Today Z00.00 - Encounter for general adult medical examination without abnormal findings Medications: Refilled cetirizine (Zyrtec) 10 mg PO DAILY PRN 90 tabs 3RF allergy symptoms Coding Level of Care Code Est Pt Prev Care 18-39y(29702) Diagnoses Obesity (BMI 30.0-34.9) E66.9 Hypertriglyceridemia E78.1 Generalized anxiety disorder F41.1 Annual physical exam Z00.00 Attention deficit hyperactivity disorder (ADHD), unspecified ADHD type F90.9 Attention deficit-hyperactivity disorder type: unspecified
[2024-05-09 15:18] VITALS: BP 130/68; PULSE 71; O2SAT 98; BMI 31.1
== END 2024-05-09 16:07 | disposition home or self-care (01) ==
PROVIDERS: PCP Internal Medicine
DX: E66.9 Obesity, unspecified (principal); E78.1 Pure hyperglyceridemia; F41.1 Generalized anxiety disorder; Z00.00 Encounter for general adult medical examination without abnormal findings; F90.9 Attention-deficit hyperactivity disorder, unspecified type

== ENCOUNTER → 2024-05-09 15:10 | Outpatient (BNVA) | payer SELFPAY | PROVIDERS: PCP Internal Medicine | DX: Z00.00 Encounter for general adult medical examination without abnormal findings (principal); E66.9 Obesity, unspecified; Z68.31 Body mass index [BMI] 31.0-31.9, adult; F41.1 Generalized anxiety disorder; F90.9 Attention-deficit hyperactivity disorder, unspecified type; Z79.899 Other long term (current) drug therapy | CPT/HCPCS: 96127 ==

== ENCOUNTER 2024-05-10 07:15 | Outpatient (REF) | payer OTHER, SELFPAY ==
[2024-05-10 07:29] LABS: MANUAL DIFF FLAG NO
[2024-05-10 07:35] LABS: Basophils Percent Auto 0.7 % (0-2); Eosinophils Absolute Auto 0.3 X10*3/uL (0.0-0.4); Eosinophils Percent Auto 5.6 % (0-4); Hemoglobin 14.6 g/dl (14.0-18.0); Imm Gran Abs Auto 0.03 X10*3/uL (0.00-0.03); Imm Gran Pct Auto 0.5 % (0.0-0.4); Lymphocytes Absolute Auto 1.6 X10*3/uL (1.2-4.9); Lymphocytes Percent Auto 26.7 % (20-40); Mean Corpuscular HGB Conc 33.2 g/dl (31.0-36.0); Mean Corpuscular Hemoglobin 27.1 pg (27.0-33.0); Mean Corpuscular Volume 81.6 fL (80.0-98.0); Mean Platelet Volume 9.1 fL (9.4-12.4); Monocytes Absolute Auto 0.7 X10*3/uL (0.1-1.2); Monocytes Percent Auto 11.4 % (2-11); Neutrophils Absolute Auto 3.3 x10*3/uL (2.0-8.3); Neutrophils Percent Auto 55.1 % (45-73); Platelet Count 319 X10*3/uL (160-400); Red Blood Count 5.39 X10*6/uL (4.60-5.80); Red Cell Distribution Width 13.9 % (11.0-16.0)
[2024-05-10 08:08] LABS: Alanine Aminotransferase 28 U/L (0-40); Albumin Level 4.5 g/dL (3.5-5.0); Alkaline Phosphatase 98 U/L (39-117); Anion Gap 13 (12-20); Aspartate Amino Transferase 21 U/L (5-37); Bilirubin Total 0.3 mg/dL (0.0-1.0); Blood Urea Nitrogen 11 mg/dL (9-16); Calcium 10.1 mg/dL (8.4-10.2); Carbon Dioxide 27 mmol/L (22-29); Chloride 107 mmol/L (96-108); Cholesterol 188 mg/dL (<200); Estimated Glomerular Filt Rate > 60; Glucose Random 108 mg/dL (60-115); HDL Cholesterol 36 mg/dL (>40); LDL Cholesterol Calculated 123 mg/dL (<100); Potassium 4.6 mmol/L (3.3-5.1); Sodium 142 mmol/L (135-145); Total Protein 7.7 g/dL (6.5-8.0); Triglycerides 148 mg/dL (<150)
[2024-05-10 08:19] LABS: HBsAGNum1 0.37 S/CO (0.00-0.99); Hepatitis B Surface Antigen Negative (Negative); ~HepC Num1 0.23 S/CO (0.00-0.79); ~Hepatitis C Antibody Nonreactive (Nonreactive)
[2024-05-10 08:23] LABS: Free T4 (Free Thyroxine) 0.92 ng/dL (0.71-1.85); TSH reflex Free T4 1.99 uIU/mL (0.32-4.0)
[2024-05-10 08:34] LABS: Folate 16.2 ng/mL (> or = 4.0); Vitamin B12 619 pg/mL (200-900)
[2024-05-15 16:43] LABS: Vitamin D 25-OH, D2 <4 ng/mL; Vitamin D 25-OH, D3 28 ng/mL; Vitamin D 25-OH, Total 28 ng/mL (30-100)
== END 2024-05-10 07:16 | disposition home or self-care (01) ==
LOC: HO.LAB 07:15
DX: Z00.00 Encounter for general adult medical examination without abnormal findings (principal)
CPT/HCPCS: 36415; 80053; 80061; 82306; 82607; 82746; 84439; 84443; 85025; 86803; 87340

== ENCOUNTER 2024-09-19 09:52 | Outpatient (REF) | payer OTHER, SELFPAY ==
[2024-09-19 10:56] LABS: MANUAL DIFF FLAG NO
[2024-09-19 11:05] LABS: Basophils Absolute Auto 0.1 X10*3/uL (0.0-0.2); Basophils Percent Auto 0.9 % (0-2); Eosinophils Absolute Auto 0.3 X10*3/uL (0.0-0.4); Eosinophils Percent Auto 4.5 % (0-4); Hematocrit 44.1 % (42.0-52.0); Hemoglobin 14.8 g/dl (14.0-18.0); Imm Gran Abs Auto 0.02 X10*3/uL (0.00-0.03); Imm Gran Pct Auto 0.3 % (0.0-0.4); Lymphocytes Absolute Auto 1.8 X10*3/uL (1.2-4.9); Mean Corpuscular HGB Conc 33.6 g/dl (31.0-36.0); Mean Corpuscular Hemoglobin 27.1 pg (27.0-33.0); Mean Corpuscular Volume 80.8 fL (80.0-98.0); Mean Platelet Volume 8.8 fL (9.4-12.4); Monocytes Absolute Auto 0.6 X10*3/uL (0.1-1.2); Neutrophils Absolute Auto 4.1 x10*3/uL (2.0-8.3); Neutrophils Percent Auto 59.3 % (45-73); Platelet Count 358 X10*3/uL (160-400); Red Blood Count 5.46 X10*6/uL (4.60-5.80); Red Cell Distribution Width 13.8 % (11.0-16.0); White Blood Count 6.9 X10*3/uL (4.8-10.8)
[2024-09-19 11:27] LABS: Alanine Aminotransferase 40 U/L (0-40); Albumin Level 4.8 g/dL (3.5-5.0); Alkaline Phosphatase 99 U/L (39-117); Anion Gap 10 (12-20); Aspartate Amino Transferase 30 U/L (5-37); Bilirubin Total 0.7 mg/dL (0.0-1.0); Blood Urea Nitrogen 13 mg/dL (9-16); Calcium 9.6 mg/dL (8.4-10.2); Carbon Dioxide 28 mmol/L (22-29); Chloride 108 mmol/L (96-108); Cholesterol 211 mg/dL (<200); Estimated Glomerular Filt Rate > 60; Glucose Random 100 mg/dL (60-115); HDL Cholesterol 41 mg/dL (>40); LDL Cholesterol Calculated 151 mg/dL (<100); Potassium 4.5 mmol/L (3.3-5.1); Sodium 141 mmol/L (135-145); Total Protein 8.3 g/dL (6.5-8.0); Triglycerides 97 mg/dL (<150)
[2024-09-19 11:39] LABS: Estimated Average Glucose 103 mg/dL; Hemoglobin A1C 128.2527 umol/L; Hemoglobin A1c % 5.2 % (<6.0); Total Hemoglobin (HGBA1C) 3803.1737 umol/L
[2024-09-19 11:43] LABS: HBS Num1 55.07 mIU/mL (0-7.99); HBc Num1 0.08 S/CO (0.00-0.79); HIV AB/AG Nonreactive (Nonreactive); HIV Num 1 0.05 S/CO (0.00-0.99); Hepatitis B Core Antibody Nonreactive (Nonreactive); Hepatitis B Surface Antigen Negative (Negative); ~HepC Num1 0.13 S/CO (0.00-0.79); ~Hepatitis B Surface Antibody REACTIVE (Nonreactive); ~Hepatitis C Antibody Nonreactive (Nonreactive)
[2024-09-19 11:44] LABS: Free T4 (Free Thyroxine) 1.09 ng/dL (0.71-1.85); Thyroid Stimulating Hormone 0.95 uIU/mL (0.32-4.0)
[2024-09-19 11:45] LABS: Syphilis Screen Reactive (Nonreactive)
[2024-09-24 12:55] LABS: RPR Quantitative Reactive 1:2 (Nonreactive); T.Pallidum Particle Agg Test Reactive (Nonreactive)
== END 2024-09-19 09:53 | disposition home or self-care (01) ==
LOC: HO.LAB 09:52
PROVIDERS: PCP Internal Medicine; Visit Provider Internal Medicine
DX: E78.00 Pure hypercholesterolemia, unspecified (principal); R73.01 Impaired fasting glucose; R79.89 Other specified abnormal findings of blood chemistry; Z20.2 Contact with and (suspected) exposure to infections with a predominantly sexual mode of transmission
CPT/HCPCS: 36415; 80053; 80061; 83036; 84439; 84443; 85025; 86592; 86704; 86706; 86780; 86803; 87340; 87389

== ENCOUNTER 2024-09-19 09:52 | Outpatient (AMB) | payer OTHER, SELFPAY ==
[2024-09-19 09:55] VITALS: BP 110/68; PULSE 80; O2SAT 98; BMI 31.1
--- NOTE | 2024-09-19 09:55 | A.OFFPC_ITS ---
Vital Signs 09/19/24 09:55 Height 5 ft 4 in Weight 181 lb BMI 31.1 BP 110/68 Blood Pressure Location Lt brachial Position Sitting Pulse 80 Pulse Source Pulse Oximeter Pulse Oximetry (%) 98 Oxygen Delivery Method Room Air Intake Visit Reasons: follow up Allergies No Known Allergies Allergy (Verified 09/19/24 09:55) Tobacco use date assessed: 09/19/24 Dental Screening Dental Screen Date: 09/19/24 Did you have a dental visit in the last 12 months?: Yes Did you have a dental problem in the last 6 months where you did not have access to dental care?: No Was dental information given to patient?: Patient has dentist HPI follow up HPI Details The patient is a 29-year-old male presenting with elevated blood glucose levels. During the visit, it was noted that the patient's fasting blood glucose was recorded at 108 mg/dL, which is higher than desired, though not categorized as diabetes. Previous tests have shown normal renal function, blood count, and electrolyte levels. The patient?s lipid profile showed an improvement with a total triglyceride level at 148 mg/dL, a reduction from a previous level of 283 mg/dL. The cholesterol report indicated favorable levels, with LDL cholesterol at 123 mg/dL. The patient has also been noted to have vitamin D deficiency, which is attributed to geographical factors, and low B12 levels. There was mention of elevated thyroid-related concerns. Dietary habits include intake of sugars and high carbohydrates like pasta, bread, rice, and potatoes, which are noted to contribute to the elevated glucose levels. Physical activity was discussed, yet compliance appears inconsistent. ON LICENSE OF [facility] Medical History Syphilis Balanitis Exposure to COVID-19 virus COVID-19 virus infection Overweight (BMI 25.0-29.9) GERD (gastroesophageal reflux disease) Allergic rhinitis ADHD Surgical History H/O adenoidectomy Social History Housing: Apartment Alcohol intake: current Alcohol intake frequency: 3 or more drinks per day Patient Tobacco Use Status: Former Tobacco user Tobacco use type: Cigarette Years Smoked: quit 2020 e-Cigarette/Vaping Use: Never Used Second Hand Smoke Exposure: No service: No Current occupational status: employed Cognitive needs: No Hearing needs: No Vision needs: No Questionnaire PHQ-9 Over the last 2 weeks, how often have you been bothered by any of the following problems? 1. Little interest or pleasure in doing things: not at all 2. Feeling down, depressed, or hopeless: not at all 3. Trouble falling or staying asleep, or sleeping too much: not at all 4. Feeling tired or having little energy: not at all 5. Poor appetite or overeating: not at all 6. Feeling bad about yourself - or that you are a failure or have let yourself or your family down: not at all 7. Trouble concentrating on things, such as reading the newspaper or watching television: not at all 8. Moving or speaking so slowly that other people could have noticed. Or the opposite - being so fidgety or restless that you have been moving around a lot more than usual: not at all 9. Thoughts that you would be better off or of hurting yourself in some way: not at all Total score: 0 Depression Screening Interpretation: Negative Depression Screening Done: Yes Source: Developed by Drs. Shimon Shaw, Brynn Cerrato, Arsh Lemus and colleagues, with an educational alfred from [employer]. Thrive Questionnaire Date Thrive assessed: 09/19/24 I am a: Patient What is your living situation today?: I have a steady place to live Within the past 12 months, did the food you bought not last and you didn't have the money to get more?: Never true Within the past 12 months, did you worry whether your food would run out before you got money to buy more?: Never true Do you have trouble paying for medicines?: No Do you have trouble getting transportation to medical appointments?: No Do you have trouble paying your heating and electricity bill?: No Do you have trouble taking care of your child, family member or friend?: No Do you have trouble with day-to-day activities such as bathing, preparing meals, shopping, managing finances, etc.?: No Are you currently unemployed and looking for a job?: No Are you interested in more education?: No Please select the resources that you would like help with: None Currently or been in a relationship where the following occur: No concerns reported THRIVE Score: 0 AUDIT C Alcohol Use Questionnaire (AUDIT-C) 2. How many drinks containing alcohol do you have on a typical day when you are drinking?: 1 or 2 3. How often do you have six or more drinks on one occasion?: Monthly Total Score: 2 FAHAD-7 AMB Questionnaire FAHAD-7 Date FAHAD - 7 assessed: 09/19/24 Feeling nervous, anxious, or on edge: 0 = Not at all Not being able to stop or control worryin = Not at all Worrying too much about different things: 0 = Not at all Trouble relaxin = Not at all Being so restless that it is hard to sit still: 0 = Not at all Becoming easily annoyed or irritable: 0 = Not at all Feeling afraid as if something awful might happen: 0 = Not at all Total FAHAD-7 score (0-4 normal; 5-9 mild; 10-14 moderate; 15-21 severe): 0 Source: Developed by Drs. Shimon Shaw, Brynn Cerrato, Arsh Lemus and colleagues, with an educational alfred from [employer]. Physical exam (Primary Care) Vital Signs: Last Vital Signs Pulse 80 09/19/24 09:55 BP 110/68 09/19/24 09:55 Pulse Ox 98 09/19/24 09:55 Oxygen Delivery Method Room Air 09/19/24 09:55 BMI result Body Mass Index 31.1 Tobacco/Smoking Status: Tobacco use Status Tobacco use date assessed 09/19/24 09/19/24 09:57 Patient Tobacco Use Status Former Tobacco user 09/19/24 09:57 Tobacco use type Cigarette 09/19/24 09:57 e-Cigarette/Vaping Use Never Used 09/19/24 09:57 PHQ-9: PHQ-9 Score PHQ-9: Total score 0 09/19/24 10:24 Depression Screening Interpretation: Negative Thrive Assessment: Date of Thrive Assessment Date Thrive assessed 09/19/24 09/19/24 09:57 Currently or been in a relationship where the following occur: No concerns reported Const General: alert; No acute distress Eyes Conjunctivae: conjunctivae normal Resp Auscultation: clear to auscultation bilaterally Cardio Rate: regular rate Rhythm: regular rhythm GI Inspection: Yes normal to inspection Extrem General: Yes normal to inspection and No edema Coding Level of Care Code Est Pt Level 4 (04354) Diagnoses Obesity (BMI 30.0-34.9) E66.9 Hypertriglyceridemia E78.1 Generalized anxiety disorder F41.1 Attention deficit hyperactivity disorder (ADHD), unspecified ADHD type F90.9 Attention deficit-hyperactivity disorder type: unspecified Impaired fasting blood sugar R73.01 Sexually transmitted disease exposure Z20.2 Assessment & Plan Assessment & Plan (1) Obesity (BMI 30.0-34.9): Code(s): E66.9 - Obesity, unspecified Category: Medical Plan: diet and exercise (2) Hypertriglyceridemia: Code(s): E78.1 - Pure hyperglyceridemia Category: Medical (3) Generalized anxiety disorder: Code(s): F41.1 - Generalized anxiety disorder Category: Medical (4) ADHD: Comment: Date of exam July 2008 Meek Spangler Neuropsychology axis 1 degrees ADHD motor output disorder visual-spatial constructional, memory and processing speed weakness rule out thought disorder PDD spectrum features axis Code(s): F90.9 - Attention-deficit hyperactivity disorder, unspecified type Category: Medical Qualifiers: Attention deficit-hyperactivity disorder type: unspecified Qualified Code(s): F90.9 - Attention-deficit hyperactivity disorder, unspecified type (5) Impaired fasting blood sugar: Code(s): R73.01 - Impaired fasting glucose Category: Medical (6) Sexually transmitted disease exposure: Code(s): Z20.2 - Contact with and (suspected) exposure to infections with a predominantly sexual mode of transmission Category: Medical Plan - Obtain fasting blood glucose level in three months to reassess glucose levels and potential endocrine evaluations as indicated. - Maintain current dietary modifications focused on reducing carbohydrate and sugar intake. - Encourage increased physical activity to assist in lowering glucose levels. - Monitor and manage vitamin D deficiency with possible supplementation, given geographical considerations impacting sun exposure. - Consider supplementation due to observed low levels. - Discuss further evaluation of thyroid function given noted abnormalities, with possible endocrine referral if necessary. - Continue to monitor lipid profile and blood pressure as part of ongoing hypertensive management. - Reinforce the importance of maintaining balanced nutrition and regular exercise for overall health and glucose regulation. Orders: Orders Lipid Panel Today Emiliano Berger MD E78.00 - Pure hypercholesterolemia, unspecified, R73.01 - Impaired fasting glucose Comprehensive Met. Panel Today Emiliano Berger MD R73.01 - Impaired fasting glucose Hemoglobin A1c Today Emiliano Berger MD R73.01 - Impaired fasting glucose Complete Blood Count Auto Diff Today Emiliano Berger MD R73.01 - Impaired fasting glucose Thyroid Stimulating Hormone Today Emiliano Berger MD R73.01 - Impaired fasting glucose Hepatitis B,C Profile Today Emiliano Berger MD R79.89 - Other specified abnormal findings of blood chemistry, Z20.2 - Contact with and (suspected) exposure to infections with a predominantly sexual mode of transmission CT NG by PCR Today Maria Teresa Metcalf PA-C Z20.2 - Contact with and (suspected) exposure to infections with a predominantly sexual mode of transmission Free T4 (Free Thyroxine) Today Emiliano Berger MD R73.01 - Impaired fasting glucose Syphilis Screen Today Emiliano Berger MD Z20.2 - Contact with and (suspected) exposure to infections with a predominantly sexual mode of transmission HIV Ab/Ag Today Emiliano Berger MD Z20.2 - Contact with and (suspected) exposure to infections with a predominantly sexual mode of transmission
== END 2024-09-19 10:31 | disposition home or self-care (01) ==
PROVIDERS: Visit Provider Internal Medicine
DX: E78.1 Pure hyperglyceridemia (principal); F41.1 Generalized anxiety disorder; E66.9 Obesity, unspecified; Z68.31 Body mass index [BMI] 31.0-31.9, adult; F90.9 Attention-deficit hyperactivity disorder, unspecified type; R73.01 Impaired fasting glucose; Z20.2 Contact with and (suspected) exposure to infections with a predominantly sexual mode of transmission

== ENCOUNTER 2024-12-27 15:38 | Outpatient (AMB) | payer OTHER, SELFPAY ==
--- NOTE | 2024-12-27 15:44 | MHC.PC.OV ---
Vital Signs 12/27/24 15:45 Height 5 ft 4 in Weight 178 lb BMI 30.6 BP 130/72 Blood Pressure Location Lt brachial Position Sitting Pulse 74 Pulse Source Pulse Oximeter Temp 97.1 F Temp Source Temporal Artery Scan Pulse Oximetry (%) 98 Oxygen Delivery Method Room Air Intake Visit Reasons: med review Intake Note: Patient is here to follow up on med review. Disability Representative Required: No Batch Roller Operator: Not Required per policy Accompanied by: Self / Same As Patient Allergies No Known Allergies Allergy (Verified 12/27/24 15:49) Medication List - Last Reconciled 12/27/24 by Maria Teresa Metcalf PA-C methylphenidate HCl ER 18 mg PO DAILY 30 days Tobacco use date assessed: 12/27/24 Dental Screening Dental Screen Date: 09/19/24 HPI med review HPI Details 29-year-old overweight male with hypertriglyceridemia generalized anxiety disorder and ADHD last seen 08/2024 coming in for med review.? Presenting with a request for medication refills for ADHD management. Currently on methylphenidate which he reports is effective in improving function in various settings such as work, school, and home. 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 He denies experiencing side effects from medication, such as insomnia related to it, palpitations, appetite issues, nausea, vomiting, dizziness, chest pain, and shortness of breath. Ongoing stress and anxiety reported, however not pharmacologically managed at present. [facility] Medical History Syphilis Balanitis Exposure to COVID-19 virus COVID-19 virus infection Overweight (BMI 25.0-29.9) GERD (gastroesophageal reflux disease) Allergic rhinitis ADHD Surgical History H/O adenoidectomy Social History Housing: Apartment Alcohol intake: current Alcohol intake frequency: 3 or more drinks per day Patient Tobacco Use Status: Former Tobacco user Tobacco use type: Cigarette Years Smoked: quit 2019 e-Cigarette/Vaping Use: Never Used Second Hand Smoke Exposure: Yes service: No Current occupational status: employed Cognitive needs: No Hearing needs: No Vision needs: No Questionnaire PHQ-9 Over the last 2 weeks, how often have you been bothered by any of the following problems? 1. Little interest or pleasure in doing things: not at all 2. Feeling down, depressed, or hopeless: not at all 3. Trouble falling or staying asleep, or sleeping too much: not at all 4. Feeling tired or having little energy: not at all 5. Poor appetite or overeating: not at all 6. Feeling bad about yourself - or that you are a failure or have let yourself or your family down: not at all 7. Trouble concentrating on things, such as reading the newspaper or watching television: not at all 8. Moving or speaking so slowly that other people could have noticed. Or the opposite - being so fidgety or restless that you have been moving around a lot more than usual: not at all 9. Thoughts that you would be better off or of hurting yourself in some way: not at all Total score: 0 Depression Screening Interpretation: Negative Depression Screening Done: Yes Source: Developed by Drs. Shimon Shaw, Brynn Cerrato, Arsh Lemus and colleagues, with an educational alfred from [employer]. Thrive Questionnaire Date Thrive assessed: 09/19/24 I am a: Patient What is your living situation today?: I have a steady place to live Within the past 12 months, did the food you bought not last and you didn't have the money to get more?: Never true Within the past 12 months, did you worry whether your food would run out before you got money to buy more?: Never true Do you have trouble paying for medicines?: No Do you have trouble getting transportation to medical appointments?: No Do you have trouble paying your heating and electricity bill?: No Do you have trouble taking care of your child, family member or friend?: No Do you have trouble with day-to-day activities such as bathing, preparing meals, shopping, managing finances, etc.?: No Are you currently unemployed and looking for a job?: No Are you interested in more education?: No Please select the resources that you would like help with: None Currently or been in a relationship where the following occur: No concerns reported THRIVE Score: 0 AUDIT C Alcohol Use Questionnaire (AUDIT-C) 1. How often do you have a drink containing alcohol?: 2-4 times a month Total Score: 2 FAHAD-7 AMB Questionnaire FAHAD-7 Date FAHAD - 7 assessed: 09/19/24 Feeling nervous, anxious, or on edge: 0 = Not at all Not being able to stop or control worryin = Not at all Worrying too much about different things: 0 = Not at all Trouble relaxin = Not at all Being so restless that it is hard to sit still: 0 = Not at all Becoming easily annoyed or irritable: 0 = Not at all Feeling afraid as if something awful might happen: 0 = Not at all Total FAHAD-7 score (0-4 normal; 5-9 mild; 10-14 moderate; 15-21 severe): 0 Source: Developed by Drs. Shimon Shaw, Brynn Cerrato, Arsh Lemus and colleagues, with an educational alfred from [employer]. Review of Systems Const Denies body aches, Denies chills, Denies fever(s) and Denies poor appetite Eyes Reports no additional complaints ENT Denies dizziness Card Denies chest pain, Denies syncope, Denies lightheadedness and Denies dyspnea Resp Denies cough and Denies dyspnea GI Denies nausea and Denies vomiting Reports no additional complaints Musc Denies abnormal gait Skin/Breast Reports system reviewed and no additional complaints, except as documented Neuro Denies abnormal gait, Denies dizziness and Denies syncope Psych Reports no additional complaints Physical exam (Primary Care) Vital Signs: Last Vital Signs Temp 97.1 F 12/27/24 15:45 Oxygen Delivery Method Room Air 12/27/24 15:45 BMI result Body Mass Index 30.6 Tobacco/Smoking Status: Tobacco use Status Tobacco use date assessed 09/19/24 09/19/24 09:57 Patient Tobacco Use Status Former Tobacco user 09/19/24 09:57 Tobacco use type Cigarette 09/19/24 09:57 e-Cigarette/Vaping Use Never Used 09/19/24 09:57 Depression Screening Interpretation: Negative Thrive Assessment: Date of Thrive Assessment Date Thrive assessed 09/19/24 09/19/24 09:57 Currently or been in a relationship where the following occur: No concerns reported Coding Level of Care Code Est Pt Level 3 (99566) Diagnoses Obesity (BMI 30.0-34.9) E66.9 Attention deficit hyperactivity disorder (ADHD), unspecified ADHD type F90.9 Attention deficit-hyperactivity disorder type: unspecified Generalized anxiety disorder F41.1 Assessment & Plan Assessment & Plan (1) Obesity (BMI 30.0-34.9): Code(s): E66.9 - Obesity, unspecified Category: Medical Plan: Healthy diet and regular exercise is encouraged. (2) ADHD: Comment: Date of exam July 2008 [facility] Neuropsychology axis 1 degrees ADHD motor output disorder visual-spatial constructional, memory and processing speed weakness rule out thought disorder PDD spectrum features axis Code(s): F90.9 - Attention-deficit hyperactivity disorder, unspecified type Category: Medical Qualifiers: Attention deficit-hyperactivity disorder type: unspecified Qualified Code(s): F90.9 - Attention-deficit hyperactivity disorder, unspecified type Plan: Patient has declined the need for a therapist at this time. Continue on methylphenidate as he finds benefit this medication. (3) Generalized anxiety disorder: Code(s): F41.1 - Generalized anxiety disorder Category: Medical Plan: Patient endorsing feelings of anxiety link to stress. Declining medication management at this time. I did advise patient if he is interested in counseling referral I can place the referral at a later date. Patient agrees to reach out if he is looking for any further management. Plan For Attention-Deficit/Hyperactivity Disorder ADHD), continuation of methylphenidate is planned, acknowledging positive response with no significant side effects reported. Regarding sleep disturbances, the patient is advised on OTC remedies such as melatonin and magnesium, emphasizing appropriate use to avoid side effects. Recommendations include continuing increased physical activity, which can contribute to improved sleep quality. Anxiety discussions were centered on exploring therapy options without immediate pharmacological intervention unless necessary, keeping mental health resources available if reconsidered. A follow-up telehealth visit is scheduled for ongoing management and review. This note was constructed using voice recognition software. While every effort has been made to ensure accuracy and airplane patrol pilot, still areas may have been included sometimes these areas may affect the content or meeting of the given symptoms. Total time spent caring for the patient today was 20 minutes. This includes time spent before the visit reviewing the chart, time spent during the visit, and time spent after the visit and documentation. Patient was informed and verbally consented to the use of an ambient scribe for clinic note documentation during this visit.
[2024-12-27 15:45] VITALS: BP 130/72; PULSE 74; TEMP 36.2; O2SAT 98; BMI 30.6
== END 2024-12-27 16:01 | disposition home or self-care (01) ==
LOC: HO.HMCH 15:38
PROVIDERS: PCP Internal Medicine
DX: F41.1 Generalized anxiety disorder (principal); E66.9 Obesity, unspecified; F90.9 Attention-deficit hyperactivity disorder, unspecified type; Z68.30 Body mass index [BMI] 30.0-30.9, adult

== ENCOUNTER → 2024-12-27 15:38 | Outpatient (BNVA) | payer OTHER, SELFPAY | PROVIDERS: PCP Internal Medicine | DX: Z13.89 Encounter for screening for other disorder (principal) ==

== ENCOUNTER 2025-05-22 16:19 | Outpatient (AMB) | payer OTHER, SELFPAY ==
[2025-05-22 16:23] VITALS: BP 116/74; PULSE 94; TEMP 36.3; O2SAT 97; BMI 31.1
--- NOTE | 2025-05-22 16:23 | MHC.PC.OV ---
Vital Signs 05/22/25 16:23 Height 5 ft 4 in Weight 181 lb 2 oz BMI 31.1 BP 116/74 Blood Pressure Location Lt brachial Position Sitting Pulse 94 Pulse Source Pulse Oximeter Temp 97.3 F Temp Source Temporal Artery Scan Pulse Oximetry (%) 97 Oxygen Delivery Method Room Air Intake Visit Reasons: Annual Exam Allergies No Known Allergies Allergy (Verified 05/22/25 16:25) Medication List - Last Reconciled 05/22/25 by Emiliano Berger MD methylphenidate HCl ER 18 mg PO DAILY 30 days Tobacco use date assessed: 05/22/25 Dental Screening Dental Screen Date: 05/22/25 Did you have a dental visit in the last 12 months?: Yes Did you have a dental problem in the last 6 months where you did not have access to dental care?: No Was dental information given to patient?: Patient has dentist [facility] Medical History Syphilis Balanitis Exposure to COVID-19 virus COVID-19 virus infection Overweight (BMI 25.0-29.9) GERD (gastroesophageal reflux disease) Allergic rhinitis ADHD Surgical History H/O adenoidectomy Social History (Updated 05/22/25 @ 16:57 by Emiliano Berger MD) Housing: Apartment Alcohol intake: current Alcohol intake frequency: 3 or more drinks per day Comment: weekends 6 pack Patient Tobacco Use Status: Former Tobacco user Tobacco use type: Cigarette Years Smoked: quit 2019 e-Cigarette/Vaping Use: Never Used Second Hand Smoke Exposure: Yes service: No Current occupational status: employed Cognitive needs: No Hearing needs: No Vision needs: No Questionnaire PHQ-9 Over the last 2 weeks, how often have you been bothered by any of the following problems? 1. Little interest or pleasure in doing things: not at all 2. Feeling down, depressed, or hopeless: not at all 3. Trouble falling or staying asleep, or sleeping too much: not at all 4. Feeling tired or having little energy: not at all 5. Poor appetite or overeating: not at all 6. Feeling bad about yourself - or that you are a failure or have let yourself or your family down: not at all 7. Trouble concentrating on things, such as reading the newspaper or watching television: not at all 8. Moving or speaking so slowly that other people could have noticed. Or the opposite - being so fidgety or restless that you have been moving around a lot more than usual: not at all 9. Thoughts that you would be better off or of hurting yourself in some way: not at all Total score: 0 Depression Screening Interpretation: Negative Depression Screening Done: Yes Source: Developed by Drs. Shimon Shaw, Brynn Cerrato, Arsh Lemus and colleagues, with an educational alfred from [employer]. Thrive Questionnaire Date Thrive assessed: 12/27/24 I am a: Patient What is your living situation today?: I have a steady place to live Within the past 12 months, did the food you bought not last and you didn't have the money to get more?: Never true Within the past 12 months, did you worry whether your food would run out before you got money to buy more?: Never true Do you have trouble paying for medicines?: No Do you have trouble getting transportation to medical appointments?: No Do you have trouble paying your heating and electricity bill?: No Do you have trouble taking care of your child, family member or friend?: No Do you have trouble with day-to-day activities such as bathing, preparing meals, shopping, managing finances, etc.?: No Are you currently unemployed and looking for a job?: No Are you interested in more education?: No Please select the resources that you would like help with: None Currently or been in a relationship where the following occur: No concerns reported THRIVE Score: 0 AUDIT C Alcohol Use Questionnaire (AUDIT-C) 1. How often do you have a drink containing alcohol?: 2-4 times a month 2. How many drinks containing alcohol do you have on a typical day when you are drinking?: 1 or 2 3. How often do you have six or more drinks on one occasion?: Never Total Score: 2 FAHAD-7 AMB Questionnaire FAHAD-7 Date FAHAD - 7 assessed: 09/19/24 Feeling nervous, anxious, or on edge: 0 = Not at all Not being able to stop or control worryin = Not at all Worrying too much about different things: 0 = Not at all Trouble relaxin = Not at all Being so restless that it is hard to sit still: 0 = Not at all Becoming easily annoyed or irritable: 0 = Not at all Feeling afraid as if something awful might happen: 0 = Not at all Total FAHAD-7 score (0-4 normal; 5-9 mild; 10-14 moderate; 15-21 severe): 0 Source: Developed by Drs. Shimon Shaw, Brynn Cerrato, Arsh Lemus and colleagues, with an educational alfred from [employer]. Review of Systems Const Denies poor appetite and Denies weakness Eyes Denies no additional complaints ENT Reports Normal hearing present, Denies dizziness, Denies nasal congestion, Denies tinnitus and Denies sore throat Card Denies chest pain, Denies syncope, Denies rapid heart rate and Denies dyspnea Resp Denies cough and Denies dyspnea GI Denies change in stool character, Reports constipation, Denies diarrhea, Denies nausea and Denies vomiting Denies dysuria and Denies urinary frequency Neuro Reports Normal hearing present, Denies confusion, Denies dizziness, Denies syncope and Denies weakness Psych Denies confusion Physical exam (Primary Care) Vital Signs: Last Vital Signs Temp 97.3 F 05/22/25 16:23 Pulse 94 05/22/25 16:23 BP 116/74 05/22/25 16:23 Pulse Ox 97 05/22/25 16:23 Oxygen Delivery Method Room Air 05/22/25 16:23 BMI result Body Mass Index 31.1 Tobacco/Smoking Status: Tobacco use Status Tobacco use date assessed 05/22/25 05/22/25 16:26 Patient Tobacco Use Status Former Tobacco user 05/22/25 16:26 Tobacco use type Cigarette 05/22/25 16:26 e-Cigarette/Vaping Use Never Used 05/22/25 16:26 PHQ-9: PHQ-9 Score PHQ-9: Total score 0 05/22/25 16:26 Depression Screening Interpretation: Negative Thrive Assessment: Date of Thrive Assessment Date Thrive assessed 12/27/24 05/22/25 16:26 Currently or been in a relationship where the following occur: No concerns reported Const General: No confusion Orientation/consciousness: No confusion HENMT Head: Yes normocephalic Head images:  1. 5 mm skin tag Ears: external ears normal and TM's normal bilaterally Face and sinus: Yes normal facial exam Mouth: moist mucous membranes Throat: Yes tonsils normal Eyes Conjunctivae: conjunctivae normal Pupils: Equal, round and reactive pupils present and Pupil accommodation reflex normal Direct Ophthalmoscopy: normal light reflex Neck Neck: No lymphadenopathy Thyroid: Thyroid normal Chest Chest palpation & inspection: normal inspection of the chest Resp Effort & Inspection: normal respiratory effort and no audible wheezes Auscultation: clear to auscultation bilaterally, no crackles, no wheezes and lung sounds not diminished Cardio Rate: regular rate Rhythm: regular rhythm Peripheral pulses: radial pulses present and dorsalis pedis present GI Palpation (GI): no masses Auscultation: normal bowel sounds and normoactive bowel sounds Rectal Exam - Male: Yes deferred Skin General skin exam: no rashes or lesions noted Rashes: no rashes Neuro General: No confusion Cranial nerves: Yes Equal, round and reactive pupils present and Yes Normal hearing present Cognition (Neuro): normal cognition Gait exam (Neuro): Normal gait present Motor exam (neuro): 5/5 motor strength present throughout Deep tendon reflexes (DTR's): Right brachioradialis reflex intensity grade: 2+, Left brachioradialis reflex intensity grade: 2+, Right patellar reflex intensity grade: 2+ and Left patellar reflex intensity grade: 2+ Extrem General: No edema Coding Level of Care Code Est Pt Prev Care 18-39y(54613) Diagnoses Annual physical exam Z00.00 Obesity (BMI 30.0-34.9) E66.9 Impaired fasting blood sugar R73.01 Hypercholesterolemia E78.00 Attention deficit hyperactivity disorder (ADHD), unspecified ADHD type F90.9 Attention deficit-hyperactivity disorder type: unspecified Generalized anxiety disorder F41.1 Alcohol abuse F10.10 Skin tag L91.8 Assessment & Plan Assessment & Plan (1) Annual physical exam: Code(s): Z00.00 - Encounter for general adult medical examination without abnormal findings Category: Medical Plan: Patient is advised to eat healthy, keep well hydrated, keep active and have adequate sleep. (2) Obesity (BMI 30.0-34.9): Code(s): E66.9 - Obesity, unspecified Category: Medical Plan: Diet and exercise (3) Impaired fasting blood sugar: Code(s): R73.01 - Impaired fasting glucose Category: Medical Plan: Decrease the amount of carbohydrate intake, pasta, bread, rice and potatoes are all sugar and that is aside from all the sweet stuff, remember that fruits are good but they are Sweet also. (4) Hypercholesterolemia: Code(s): E78.00 - Pure hypercholesterolemia, unspecified Category: Medical Plan: Avoid fried foods, chicken skin, eggs, butter margarine, pastries and meat. Be it pork or beef they have a lot of cholesterol (5) ADHD: Comment: Date of exam July 2008 [facility] Neuropsychology axis 1 degrees ADHD motor output disorder visual-spatial constructional, memory and processing speed weakness rule out thought disorder PDD spectrum features axis Code(s): F90.9 - Attention-deficit hyperactivity disorder, unspecified type Category: Medical Qualifiers: Attention deficit-hyperactivity disorder type: unspecified Qualified Code(s): F90.9 - Attention-deficit hyperactivity disorder, unspecified type Plan: Continue with present medication (6) Generalized anxiety disorder: Code(s): F41.1 - Generalized anxiety disorder Category: Medical Plan: Continue with present medication (7) Alcohol abuse: Code(s): F10.10 - Alcohol abuse, uncomplicated Category: Social Hx (8) Skin tag: Comment: posterior neck Code(s): L91.8 - Other hypertrophic disorders of the skin Category: Medical Plan History of Present Illness The patient is a 30-year-old male presenting for a physical examination and management of chronic conditions. The patient has a history of obesity, which has been a concern due to its potential impact on his overall health. He acknowledges limited physical activity and occasional alcohol consumption, which may contribute to weight management challenges. Attention Deficit Hyperactivity Disorder (ADHD) is managed with methylphenidate, and the patient reports no recent changes in medication or dosage adjustments. He is not currently experiencing any issues with medication efficacy. Generalized Anxiety Disorder is noted, but no specific interventions or exacerbations were discussed during the visit. The patient has hypercholesterolemia, with a previous LDL cholesterol level of 151 mg/dL. Diet and exercise were recommended as part of the management plan. Impaired glucose tolerance was identified with elevated blood sugar levels, although hemoglobin A1c remains normal. The patient is advised to monitor blood sugar levels and maintain a healthy lifestyle to prevent progression to diabetes. 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 - Education: Attends school and has access to a gym - Substance Use: Occasionally consumes alcohol on weekends, no tobacco or recreational drug use - Exercise: Limited physical activity, despite access to gym facilities - Nutrition: Consumes smoothies, aware of sugar content Review of Systems - General: Denies fever, dizziness, or passing out - Cardiovascular: Denies chest pain, palpitations, or shortness of breath - Respiratory: Denies cough or wheezing - Gastrointestinal: Denies nausea, vomiting, constipation, or diarrhea - Neurological: Denies numbness or tingling in extremities - Musculoskeletal: Reports intermittent pain, denies redness or swelling - Dermatological: No new skin issues reported - Ophthalmological: No vision problems, recent eye exam with low prescription Physical Exam General: Cooperative, healthy appearing, comfortable, no acute distress and well developed Orientation: Patient oriented x3 Limitations: No limitations Head: Normal to inspection Ears: Hearing grossly normal bilaterally Nose: Normal external nose present Face and sinus: Normal facial exam Eyes: Appearance normal, both eyes and all related structures Neck: Normal visual inspection and Yes full ROM Respiratory: Normal respiratory effort and able to speak in complete sentences. Clear to auscultation bilaterally Cardiovascular: Regular rate and rhythm. Normal S1 and S2 GI: Normal to inspection. Soft to palpation and nontender Skin: No rashes or lesions noted Neuro: Patient oriented x3 Extremities: Normal to inspection Results - Labs: Elevated LDL cholesterol at 151 mg/dL, elevated blood sugar, normal hemoglobin A1c Plan Patient was informed and verbally consented to the use of an ambient scribe for clinic note documentation during this visit. 1. Obesity The patient is advised to increase physical activity and reduce alcohol consumption to aid in weight management. Dietary modifications, including reducing sugar intake from smoothies, are recommended. 2. Attention Deficit Hyperactivity Disorder (Adhd) The patient is currently on methylphenidate, with no recent changes in dosage or efficacy reported. 3. Generalized Anxiety Disorder No specific interventions or changes in management were discussed during this visit. 4. Hypercholesterolemia Diet and exercise are emphasized as part of the management plan to reduce LDL cholesterol levels. A follow-up blood test is scheduled to monitor cholesterol levels. 5. Impaired Glucose Tolerance The patient is advised to monitor blood sugar levels and maintain a healthy lifestyle to prevent progression to diabetes. A follow-up fasting blood test is planned to reassess glucose levels. Discussion Notes During the visit, we discussed the importance of lifestyle modifications, including diet and exercise, to manage obesity and hypercholesterolemia. I advised the patient to monitor blood sugar levels and scheduled a follow-up blood test to reassess cholesterol and glucose levels. We also talked about the benefits of receiving a flu vaccination in May. Patient Instructions - Increase physical activity and reduce alcohol consumption. - Follow a healthy diet, reducing sugar intake from smoothies. - Monitor blood sugar levels regularly. - Schedule and complete follow-up blood tests as advised. - Plan to receive a flu vaccination in May. Orders: Orders Free T4 (Free Thyroxine) 2 Months E78.00 - Pure hypercholesterolemia, unspecified Thyroid Stimulating Hormone 2 Months E78.00 - Pure hypercholesterolemia, unspecified Lipid Panel 2 Months E78.00 - Pure hypercholesterolemia, unspecified Vitamin B12 and Folate 2 Months E78.00 - Pure hypercholesterolemia, unspecified Complete Blood Count Auto Diff 2 Months E78.00 - Pure hypercholesterolemia, unspecified Comprehensive Met. Panel 2 Months E78.00 - Pure hypercholesterolemia, unspecified Hemoglobin A1c 2 Months E78.00 - Pure hypercholesterolemia, unspecified Referrals Dermatology Referral L91.8 - Other hypertrophic disorders of the skin
--- OUTSIDE RECORDS SUMMARY | 2025-05-22 17:14 | XMS_ITS | Clinical Summary ---
Author Organization [facility] Address [address] [address] Phone Care Team Providers Care Wooden Tank Erector Name Role Phone Pcp, Not Required Primary Care Provider Unavaila ble Social History Tobacco Use Types Packs/Day Years Used Date Smoking Tobacco: Never Assessed Education Answer Date Recorded Are you interested in more education? Not on edgard e 12/18/2022 Are you concerned about learning? Not on file 12/18/2022 No 12/18/2022 No 12/18/2022 Digital Access Answer Date Recorded No 01/16/2023 No 01/16/2023 No 01/16/2023 Reliable internet access at home? Not on file 01/16/2023 Device with a working camera? Not on file Sex and Gender Information Value Date Recorded Sex Assigned at Male 12/12/2019 1:10 PM EDT Legal Sex Male 8:21 AM EDT Gender Identity Male 12/12/2019 1:10 PM EDT Sexual Orientation Lesbian or Ku 12/12/2019 1: 10 PM EDT Plan of Treatment Health Maintenance Due Date Last Done Comments DEPRESSION SCREENING 2005 SMOKING Hx and SMOKELESS TOBACCO SCREENING 2006 HEPATITIS C SCREENING 2011 HIV ONE-TIME SCREENING (18-6 5 YEARS) 2011 INFLUENZA VACCINE (#1) 2025 05/29/2016 COVID-19 VACCINE (3 2024-2 6 season) 2025 09/06/2020, 08/15/2020 Adult Td,Tdap Booster 12/21/2026 12/21/2016 HEPATITIS A VACCINES Aged Out No long er eligible based on patient's age to complete this topic HIB VACCINES Aged Out No longer eligi ble based on patient's age to complete this topic MENINGOCOCCAL VACCINES (ACWY) Aged Out No longer eligible based on patient's age to complete this topic MENINGOCOCCAL VACCINES (B) Aged Out N o longer eligible based on patient's age to complete this topic PNEUMOCOCCAL VACCINES (0-49 years) Aged Out No longer eligible b ased on patient's age to complete this topic Medical Devices Not on file [facility] A[facility]NA HMO POS EPO AETNA HMO POS EPO AETNA O POS EPO AETNA O POS EPO AETNA O POS EPO AETNA O POS EPO AETNA O POS EPO Care Teams Wooden Tank Erector Relationship Specialty Start Date End Date Pcp, Not Required [address] [place] [id number] PCP - General 12/12/19 Additional Source Comments The information contained in this document represents components of the legal health record. It is not the complete legal health record.[facility]
== END 2025-05-22 17:11 | disposition home or self-care (01) ==
LOC: HO.HMCH 16:20
PROVIDERS: PCP Internal Medicine; Visit Provider Internal Medicine
DX: Z00.00 Encounter for general adult medical examination without abnormal findings (principal); E66.9 Obesity, unspecified; R73.01 Impaired fasting glucose; Z68.31 Body mass index [BMI] 31.0-31.9, adult; E78.00 Pure hypercholesterolemia, unspecified; F90.9 Attention-deficit hyperactivity disorder, unspecified type; F41.1 Generalized anxiety disorder; F10.10 Alcohol abuse, uncomplicated; L91.8 Other hypertrophic disorders of the skin

== ENCOUNTER 2025-05-24 09:41 | Outpatient (REF) | payer OTHER, SELFPAY ==
[2025-05-24 09:55] LABS: MANUAL DIFF FLAG NO
[2025-05-24 10:28] LABS: Hematocrit 42.5 % (42.0-52.0); Hemoglobin 14.2 g/dl (14.0-18.0); Imm Gran Abs Auto 0.02 X10*3/uL (0.00-0.03); Imm Gran Pct Auto 0.3 % (0.0-0.4); Lymphocytes Absolute Auto 1.8 X10*3/uL (1.2-4.9); Mean Corpuscular HGB Conc 33.4 g/dl (31.0-36.0); Mean Corpuscular Hemoglobin 26.9 pg (27.0-33.0); Mean Corpuscular Volume 80.6 fL (80.0-98.0); NRBC Abs Auto 0.000 X10*3/uL (0.0-0.012); NRBC Pct Auto 0.0 /100WBC (0.0-0.2); Platelet Count 368 X10*3/uL (160-400); Red Blood Count 5.27 X10*6/uL (4.60-5.80); White Blood Count 6.0 X10*3/uL (4.8-10.8)
--- OUTSIDE RECORDS SUMMARY | 2025-05-24 10:46 | XMS_ITS | Clinical Summary ---
Author Organization [facility] Address [address] [address] Phone Care Team Providers Care Librarian Special Collections Name Role Phone Pcp, Not Required Primary [...] topic Medical Devices Not on file [facility] HMO POS EPO AETNA HMO POS EPO AETNA O POS EPO AETNA O POS EPO AETNA O POS EPO AETNA O POS EPO AETNA O POS EPO Care Teams Librarian Special Collections Relationship Specialty Start Date End Date Pcp, Not Required [address] [place] [id number] PCP - General 12/12/19 Additional Source Comments The information contained in this document represents components of the legal health record. It is not the complete legal health record.[facility]
[2025-05-24 10:58] LABS: Alanine Aminotransferase 34 U/L (0-40); Albumin Level 5.1 g/dL (3.5-5.0); Alkaline Phosphatase 105 U/L (39-117); Anion Gap 11 (12-20); Aspartate Amino Transferase 26 U/L (5-37); Blood Urea Nitrogen 13 mg/dL (9-16); Calcium 9.7 mg/dL (8.4-10.2); Carbon Dioxide 28 mmol/L (22-29); Chloride 106 mmol/L (96-108); Cholesterol 197 mg/dL (<200); Estimated Glomerular Filt Rate > 60; HDL Cholesterol 38 mg/dL (>40); Potassium 4.2 mmol/L (3.3-5.1); Sodium 141 mmol/L (135-145); Total Protein 7.7 g/dL (6.5-8.0); Triglycerides 93 mg/dL (<150)
[2025-05-24 11:26] LABS: Free T4 (Free Thyroxine) 1.14 ng/dL (0.71-1.85); Thyroid Stimulating Hormone 1.06 uIU/mL (0.32-4.0)
[2025-05-24 11:31] LABS: Folate 12.5 ng/mL (> or = 4.0); Vitamin B12 656 pg/mL (200-900)
== END 2025-05-24 09:42 | disposition home or self-care (01) ==
LOC: HO.LAB 09:41
PROVIDERS: Visit Provider Internal Medicine
DX: E78.00 Pure hypercholesterolemia, unspecified (principal); Z13.1 Encounter for screening for diabetes mellitus
CPT/HCPCS: 36415; 80053; 80061; 82607; 82746; 83036; 84439; 84443; 85025

== ENCOUNTER 2025-08-07 08:51 | Outpatient (AMB) | payer OTHER, SELFPAY ==
--- NOTE | 2025-08-07 08:55 | MHC.PC.OV ---
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 Presenting for a follow-up and medication management. He reports that his current dose of Concerta (methylphenidate) is wearing off during the day and feels he could benefit from an increased dose. His bad cholesterol (LDL) was previously 151 and has come down to 141, but remains above the goal of less than 130. The patient reports a diet that includes oatmeal, mixed berries, and boiled eggs. He has been experiencing intermittent pain in his elbow and arm, which once woke him from sleep. He also noted some numbness and tingling in his hand while taking an exam. 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 Cognitive needs: No Hearing needs: No Vision needs: No Questionnaire Thrive Questionnaire Date Thrive assessed: 12/27/24 I am a: Patient What is your living situation today?: I have a steady place to live Within the past 12 months, did the food you bought not last and you didn't have the money to get more?: Never true Within the past 12 months, did you worry whether your food would run out before you got money to buy more?: Never true Do you have trouble paying for medicines?: No Do you have trouble getting transportation to medical appointments?: No Do you have trouble paying your heating and electricity bill?: No Do you have trouble taking care of your child, family member or friend?: No Do you have trouble with day-to-day activities such as bathing, preparing meals, shopping, managing finances, etc.?: No Are you currently unemployed and looking for a job?: No Are you interested in more education?: No Please select the resources that you would like help with: None Currently or been in a relationship where the following occur: No concerns reported THRIVE Score: 0 FAHAD-7 AMB Questionnaire FAHAD-7 Date FAHAD - 7 assessed: 09/19/24 Source: Developed by Drs. Shimon Shaw, Brynn Cerrato, Arsh Lemus and colleagues, with an educational alfred from [employer]. Review of Systems Const Denies body aches, Denies chills, Denies fever(s), Denies headache(s) and Denies poor appetite Eyes Reports no additional complaints ENT Denies dizziness and Denies headache(s) Card Denies chest pain, Denies edema, Denies lightheadedness and Denies dyspnea Resp Denies dyspnea GI Denies nausea and Denies vomiting Reports no additional complaints Musc Reports as per HPI and Denies abnormal gait Skin/Breast Reports system reviewed and no additional complaints, except as documented Neuro Denies abnormal gait, Denies dizziness and Denies headache(s) Psych Reports no additional complaints Physical exam (Primary Care) Vital Signs: Last Vital Signs Temp 97.5 F 08/07/25 08:58 Pulse 72 08/07/25 08:58 Resp 18 08/07/25 08:58 BP 124/82 08/07/25 08:58 Pulse Ox 98 08/07/25 08:58 Oxygen Delivery Method Room Air 08/07/25 08:58 BMI result Body Mass Index 31.6 Tobacco/Smoking Status: Tobacco use Status Tobacco use date assessed 05/22/25 08/07/25 08:56 Patient Tobacco Use Status Former Tobacco user 08/07/25 08:56 Tobacco use type Cigarette 08/07/25 08:56 e-Cigarette/Vaping Use Never Used 08/07/25 08:56 Thrive Assessment: Date of Thrive Assessment Date Thrive assessed 12/27/24 08/07/25 08:56 Currently or been in a relationship where the following occur: No concerns reported Const General: cooperative, healthy appearing, comfortable and no acute distress Orientation/consciousness: patient oriented x3 HENMT Head: Yes normocephalic Ears: hearing grossly normal bilaterally General nose exam: Normal external nose present Eyes General: appearance normal, both eyes and all related structures Conjunctivae: conjunctivae normal Neck Neck: Yes full ROM and Yes no lymphadenopathy Resp Effort & Inspection: normal respiratory effort Auscultation: clear to auscultation bilaterally, no crackles, no rales, no rhonchi and no wheezes Cardio Rate: regular rate Rhythm: regular rhythm Skin General skin exam: no rashes or lesions noted Neuro General: patient oriented x3 Gait exam (Neuro): Normal gait present Extrem Other: TTP over medial aspect of the left elbow. Intact strength, sensation and pulses in domonique UE General: Yes normal to inspection, Yes full ROM and No edema Psych Affect: normal affect Attitude: cooperative Insight: Good insight present (Psych) Judgement: Good judgement present (Psych) Coding Level of Care Code Est Pt Level 3 (26549) Diagnoses Obesity (BMI 30.0-34.9) E66.9 Attention deficit hyperactivity disorder (ADHD), unspecified ADHD type F90.9 Attention deficit-hyperactivity disorder type: unspecified Hypercholesterolemia E78.00 Screening examination for STI Z11.3 Medial epicondylitis of left elbow M77.02 Assessment & Plan Assessment & Plan (1) Obesity (BMI 30.0-34.9): Code(s): E66.9 - Obesity, unspecified Category: Medical Plan: Healthy diet and regular exercise is encouraged. (2) ADHD: Comment: Date of exam July 2008 [facility] Neuropsychology axis 1 degrees ADHD motor output disorder visual-spatial constructional, memory and processing speed weakness rule out thought disorder PDD spectrum features axis Code(s): F90.9 - Attention-deficit hyperactivity disorder, unspecified type Category: Medical Qualifiers: Attention deficit-hyperactivity disorder type: unspecified Qualified Code(s): F90.9 - Attention-deficit hyperactivity disorder, unspecified type Plan: The patient reports his current Concerta 18 mg dose is wearing off during the day. The plan is to increase his Concerta dose to 27 mg. A new prescription will be sent to the pharmacy. (3) Hypercholesterolemia: Code(s): E78.00 - Pure hypercholesterolemia, unspecified Category: Medical Plan: Avoid foods that are high in cholesterol such as red meat, fried foods, eggs and baked goods. Triglyceride goal of less than 150 and LDL goal of less than 130. The patient's LDL cholesterol remains elevated at 141, despite a decrease from 151. Dietary counseling was provided, advising him to be cautious with fried foods, red meat, and egg yolks, which are high in cholesterol. The plan is to continue monitoring his cholesterol levels. (4) Screening examination for STI: Code(s): Z11.3 - Encounter for screening for infections with a predominantly sexual mode of transmission Category: Medical Plan: Blood work ordered (5) Medial epicondylitis of left elbow: Code(s): M77.02 - Medial epicondylitis, left elbow Category: Medical Plan: The patient reports intermittent elbow/arm pain and hand numbness. Differential diagnoses include tendinitis from repetitive motion, ulnar tunnel syndrome, or carpal tunnel syndrome. Initial management recommendations include Tylenol, ibuprofen, and using a compression sleeve, especially during housekeeping activities. If symptoms become more consistent, a nerve study test can be considered to determine the origin, which could lead to occupational therapy or a referral to orthopedics. Plan This note was constructed using voice recognition software. While every effort has been made to ensure accuracy and strip deburrer, still areas may have been included sometimes these areas may affect the content or meeting of the given symptoms. Total time spent caring for the patient today was 20 minutes. This includes time spent before the visit reviewing the chart, time spent during the visit, and time spent after the visit and documentation. Patient was informed and verbally consented to the use of an ambient scribe for clinic note documentation during this visit. Orders: Orders CT NG by PCR Urine Today Z11.3 - Encounter for screening for infections with a predominantly sexual mode of transmission Syphilis Screen Today Z11.3 - Encounter for screening for infections with a predominantly sexual mode of transmission HIV Ab/Ag Today Z11.3 - Encounter for screening for infections with a predominantly sexual mode of transmission Medications: New methylphenidate HCl ER (Concerta) Partial Fill upon patient request. 27 mg PO DAILY 30 tabs 0RF
[2025-08-07 08:58] VITALS: BP 124/82; PULSE 72; RESP 18; TEMP 36.4; O2SAT 98; BMI 31.6
--- OUTSIDE RECORDS SUMMARY | 2025-08-07 09:44 | XMS_ITS | Clinical Summary ---
Author Organization [facility] Address [address] [address] Phone Care Team Providers Care Clay Modeler Name Role Phone Pcp, Not Required Primary [...] topic Medical Devices Not on file Insurance [employer] [facility] A[facility] HMO POS EPO AETNA HMO POS EPO AETNA O POS EPO AETNA O POS EPO AETNA O POS EPO AETNA O POS EPO AETNA O POS EPO Care Teams Clay Modeler Relationship Specialty Start Date End Date Pcp, Not Required PCP - General 12/12/19 Additional Source Comments The information contained in this document represents components of the legal health record. It is not the complete legal health record.[facility]
== END 2025-08-07 09:31 | disposition home or self-care (01) ==
LOC: HO.HMCH 08:52
PROVIDERS: PCP Internal Medicine
DX: E78.00 Pure hypercholesterolemia, unspecified (principal); F90.9 Attention-deficit hyperactivity disorder, unspecified type; E66.9 Obesity, unspecified; Z68.31 Body mass index [BMI] 31.0-31.9, adult; Z11.3 Encounter for screening for infections with a predominantly sexual mode of transmission; M77.02 Medial epicondylitis, left elbow

== ENCOUNTER 2025-08-07 08:51 | Outpatient (REF) | payer OTHER, SELFPAY ==
[2025-08-07 11:07] LABS: HIV Num 1 0.33 S/CO (0.00-0.99)
[2025-08-07 11:17] LABS: Syphilis Screen Reactive (Nonreactive)
[2025-08-07 12:18] LABS: CT PCR Urine NOT DETECTED (Not Detect.); NG PCR Urine NOT DETECTED (Not Detect.)
== END 2025-08-07 08:52 | disposition home or self-care (01) ==
LOC: HO.LAB 08:51
DX: Z11.4 Encounter for screening for human immunodeficiency virus [HIV] (principal); Z20.2 Contact with and (suspected) exposure to infections with a predominantly sexual mode of transmission
CPT/HCPCS: 86592; 86780; 87389; 87491; 87591